=== PATIENT | female | born 1960 | race Caucasian/White ===

== ENCOUNTER 2018-12-08 17:48 | Inpatient (IN) | payer MEDICARE, OTHER ==
[~2018-12-08] VITALS: Ht 162.6 cm; Wt 72.6 kg
[~2018-12-08 17:48] MED LIST: ALBU18HF2 INH; CARI350T27 PO; HYDR-3028 PO; LEVO75TA7 PO
--- NOTE | 2018-12-08 18:22 | NUR ---
BART RILEY FROM [facility] FOR PSYCH ADMISSION. PATIENT WAS ADMITTED IN [place] FOR DRUG OVERDOSE. RR IS EVEN AND UNLABORED WITH NAD NOTED. SKIN IS WARM AND DRY. DR HENDRIX AT BS FOR EVAL.
[2018-12-08] MEDS ORDERED: LORAZEPAM 1 MG TABLET PO ONE (19:00)
[2018-12-08] MEDS ORDERED: LORAZEPAM 1 MG TABLET ONE (19:02)
--- NOTE | 2018-12-08 19:17 | NUR ---
REPORT GIVEN TO LALITHA CRUZ FOR JEFFRY.
--- NOTE | 2018-12-08 19:38 | NUR ---
CALLED FOR NURSE SUP FOR BED. [facility] [phone]
--- NOTE | 2018-12-08 19:53 | NUR ---
REPORT GIVEN TO NIKA CARTER FOR JEFFRY.
[2018-12-08] MEDS ORDERED: IBUP-1490 (20:20)
[2018-12-08] MEDS ORDERED: METH500T6 (20:20)
[2018-12-08] MEDS ORDERED: OMEP40CA37 (20:20)
[2018-12-08] MEDS ORDERED: OXYC-454 PO (20:22)
[2018-12-08] MEDS ORDERED: SUMA50TA PO (20:24)
[2018-12-08] MEDS ORDERED: ARIP2TAB3 PO (20:25)
[2018-12-08] MEDS ORDERED: MAG HYDROX/AL HYDROX/SIMETH 30 ML UDC PO PRN (21:30)
[2018-12-08] MEDS ORDERED: MAGNESIUM HYDROXIDE 30 ML UDC PO PRN (21:30)
[2018-12-08 22:00] VITALS: BP 126/70
[2018-12-08] MEDS: ACETAMINOPHEN 325 MG TABLET PO PRN (22:00)
[2018-12-08] MEDS: TEMAZEPAM 7.5 MG CAPSULE PO PRN (23:26)
[2018-12-08] MEDS ORDERED: ALBUTEROL SULFATE 8 GM HFA.AER.AD IH PRN (23:30)
[2018-12-08] MEDS ORDERED: IBUPROFEN 600 MG TABLET PO PRN (23:30)
--- NOTE | 2018-12-09 00:08 | NUR ---
ADMISSION NOTES ADMITTED THIS 58 Y/O FEMALE PATIENT FROM [facility] , PT. ADMITTED ON VOLUNTARILY STATUS C/O SEVERE DEPRESSION,SI, ANXIETY,ACUTE PSYCHOSIS,UNABLE TO CARE FOR SELF ,UPON FACE TO FACE ASSESSMENT PATIENT IS A&OX 3 COOPERTIVE, DEPRESSED , FLAT AFFECT ,EASILY AGITATED , PT.IS POOR HISTORIAN, POOR INSIGHT ,POOR JUDGEMENT ,V/S WNL, NO ACUTE DISTRESS NOTED , MD AWARE AND NOTIFIED OF THE ADMISSION, ,ENCOURAGED PT. VERBALIZED ANY FEELING CONCERN TO STAFF, ORIENT TO UNIT POLICY, WILL CONTINUE TO MONITOR FOR Q15 SAFETY AND BEHAVIOR.
[2018-12-09 08:00] VITALS: BP 121/74
[2018-12-09] MEDS ORDERED: ALBUTEROL FS 2.5 MG/3 ML VIAL.NEB NEB PRN (08:30)
[2018-12-09 08:31] LABS: CREATININE 0.6 mg/dL (0.6-1.3)
[2018-12-09 08:35] LABS: CHOLESTEROL 148 mg/dL (<200); HDL CHOLESTEROL 56 mg/dL (40-60); LDL 82 mg/dL (0-99); TRIGLYCERIDES 54 mg/dL (30-150)
[2018-12-09] MEDS: LEVOTHYROXINE SODIUM 75 MCG TABLET PO SCH (09:50)
[2018-12-09] MEDS: CARISOPRODOL 350 MG TABLET PO SCH ×3 (09:50→17:55)
[2018-12-09] MEDS: PANTOPRAZOLE 40 MG TABLET.DR PO SCH (09:51)
[2018-12-09] MEDS: oxyCODONE/APAP (5/325 MG) 1 UDTAB TABLET PO PRN (11:46)
--- NOTE | 2018-12-09 11:46 | NUR ---
RN NOTES ADMINISTERED PERCOCET 5/325 MG PO PRN FOR LOWER BACK PAIN, V/S TAKEN BP121/ 74, P-66, ENCOURAGED TO INCREASE FLUID INTAKE, CONTINUED MONITORING.
--- NOTE | 2018-12-09 12:57 | NUR ---
RN NOTES PATIENT SMOKER BUT REFUSED TO TELL HOW MUCH SHE SMOKE A DAY, WAYNE AWARE OF. NO NEW ORDER AT THIS TIME.
[2018-12-09] MEDS: LORAZEPAM 0.5 MG TABLET PO PRN (14:23)
--- NOTE | 2018-12-09 14:23 | NUR ---
RN NOTES ADMINISTERED ATIVAN 0.5 MG PO PRN AND FOR ANXIETY, AND MILK OF MAGNESIA 30 ML PO PRN FO CONSTIPATION, PER PATIENT REQUEST, CONTINUED MONITORING.
--- NOTE | 2018-12-09 15:03 | NUR ---
ALVAREZ contacted pts sister Razia [phone] to discuss discharge plan. ALVAREZ left voicemail for callback.
--- NOTE | 2018-12-09 15:03 | NUR ---
INITIAL DISCHARGE PLAN: Patient wishes to be discharged to a SNF close to [facility]. SW will refer pt to [facility]. SW will help form a safe and proper discharge in collaboration with pt and MD.
[2018-12-09 16:00] VITALS: BP 100/52
[2018-12-09 20:00] VITALS: BP 97/42
[2018-12-09] MEDS: QUETIAPINE FUMARATE 25 MG TABLET PO SCH (21:18)
--- NOTE | 2018-12-09 23:30 | NUR ---
Received pt sleeping and in bed; no s/s or complaints of pain at this time. Pt is displaying no s/s of acute/apparent distress at this time. Pt's RR is WNL: unlabored with equal rise and fall of the chest. Pt. is A&Ox3 on room air with a SpO2 of 98. Pt. is not med compliant, labile mood, and irritable. Pt denies SI/HI at this time. Pt. assisted with turning and repositioning q2hrs and PRN for comfort and circulation. Pt. has no needs at this time. Pt. educated on the use of the call crocker. Pt bed side rails up x2 for safety, bed is locked and in low position; will continue to monitor and maintain safety.
[2018-12-10] MEDS: oxyCODONE/APAP (5/325 MG) 1 UDTAB TABLET PO PRN ×2 (03:35→21:06)
[2018-12-10 08:00] VITALS: BP 113/60
[2018-12-10] MEDS: ACETAMINOPHEN 325 MG TABLET PO PRN (09:53)
[2018-12-10] MEDS: ESCITALOPRAM OXALATE (10 MG) 10 MG TABLET PO SCH (09:53)
[2018-12-10] MEDS: LEVOTHYROXINE SODIUM 75 MCG TABLET PO SCH (09:53)
[2018-12-10] MEDS: PANTOPRAZOLE 40 MG TABLET.DR PO SCH (09:54)
[2018-12-10] MEDS: CARISOPRODOL 350 MG TABLET PO SCH ×3 (09:54→17:07)
[2018-12-10 11:12] LABS: BASOPHILS % (AUTO) 0.6 % (0.0-2.0); EOSINOPHILS % (AUTO) 3.1 % (0.0-6.0); HEMATOCRIT 31 % (33-45); HEMOGLOBIN 10.7 g/dL (11.5-14.8); LYMPHOCYTES # (AUTO) 1.6 /CMM (0.8-4.8); LYMPHOCYTES % (AUTO) 46.6 % (20.0-44.0); MEAN CORPUSCULAR HGB CONC 35 g/dl (31.0-36.0); MEAN CORPUSCULAR VOLUME 95 fL (82-100); MONOCYTES # (AUTO) 0.3 /CMM (0.1-1.30); MONOCYTES % (AUTO) 8.1 % (2.0-12.0); NEUTROPHILS # (AUTO) 1.5 /CMM (1.8-8.9); NEUTROPHILS % (AUTO) 41.6 % (43.0-81.0); PLATELET COUNT (AUTO) 196 /CMM (150-450); RED BLOOD CELL COUNT(AUTO) 3.22 MIL/uL (4.0-5.2); WHITE BLOOD COUNT (AUTO) 3.5 K/uL (4.3-11.0)
[2018-12-10 16:00] VITALS: BP 134/79
--- NOTE | 2018-12-10 18:01 | NUR ---
NURSES NOTE PT TRANSFER TO MS ROOM 208A IN STABLE CONDITION DENIED ANY PAIN OR DISCOMFORT, TRANVEL WITH THE SITTER
--- NOTE | 2018-12-10 19:45 | NUR ---
GPS OVERFLOW/RN OPENING NOTES RECEIVED REPORT FROM DAYSMDFT RNSYLVIE. FOUND Pt AWAKE, RESTING IN BED. NO S/S OF ACUTE DISTRESS OR SOB NOTED. Pt IS A GPS OVERFLOW, WHO IS A/OX3, VERBAL, ABLE TO MAKE NEEDS KNOWN. ON VOLUNTARY ADMIT. SITTER AT BEDSIDE. NO IV ACCESS IN PLACE PER GPS PROTOCOL. SAFETY MEASURES IN PLACE. BED LOW, LOCKED, HOB ELEVATED, SIDE RAILS UP AND BEDSIDE TABLE WITHIN REACH. WILL CONTINUE TO MONITOR Pt's CONDITION AND SAFETY THROUGHOUT THE NIGHT.
[2018-12-10 20:00] VITALS: BP 100/68
[2018-12-10] MEDS: QUETIAPINE FUMARATE 25 MG TABLET PO SCH (21:02)
--- NOTE | 2018-12-11 06:37 | NUR ---
RN CLOSING NOTES NO SIGNIFICANT CHANGES IN Pt's CONDITION. Pt REMAINS STABLE PER BASELINE. NO S/S OF ACUTE DISTRESS OR SOB NOTED DURING THE NIGHT. ALL NEEDS MET AND ATTENDED TO. SAFETY MEASURES IN PLACE. SITTER AT BEDSIDE. WILL ENDORSE TO DAYSHIFT RN FOR Pt's JEFFRY.
--- NOTE | 2018-12-11 07:05 | NUR ---
RN NOTES PATIENT A/OX3, CALM AND COOPERATIVE, NO APPARENT DISTRESS, SITTER AT BEDSIDE, ENVIRONMENTAL HAZARDS CHECKED, NEEDS ATTENDED, WILL CONTINUE TO MONITOR.
[2018-12-11 08:00] VITALS: BP 131/76
[2018-12-11] MEDS: LEVOTHYROXINE SODIUM 75 MCG TABLET PO SCH (08:16)
[2018-12-11] MEDS: CARISOPRODOL 350 MG TABLET PO SCH ×3 (08:16→16:36)
[2018-12-11] MEDS: ESCITALOPRAM OXALATE (10 MG) 10 MG TABLET PO SCH (08:16)
[2018-12-11] MEDS: PANTOPRAZOLE 40 MG TABLET.DR PO SCH (08:16)
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
[2018-12-11 16:05] VITALS: BP 110/67
--- NOTE | 2018-12-11 16:12 | NUR ---
SW completed substance abuse intervention with pt.
--- NOTE | 2018-12-11 19:21 | NUR ---
RN NOTES PATIENT A/OX3, DENIES SI/HI, NAD, VSS, KEPT COMFORTABLE, SITTER AT BEDSIDE, WILL ENDORSE TO DRILLING PLANT OPERATOR FOR JEFFRY.
--- NOTE | 2018-12-11 19:55 | NUR ---
GPS OVERFLOW/RN OPENING NOTES RECEIVED REPORT FROM [facility] RNNOHEMI. FOUND Pt AWAKE, RESTING IN BED. NO S/S OF ACUTE DISTRESS OR SOB NOTED. Pt IS A GPS OVERFLOW, WHO IS A/OX3, VERBAL, ABLE TO MAKE NEEDS KNOWN. ON VOLUNTARY ADMIT. SITTER AT BEDSIDE. NO IV ACCESS IN PLACE PER GPS PROTOCOL. SAFETY MEASURES IN PLACE. BED LOW, LOCKED, HOB ELEVATED, SIDE RAILS UP AND BEDSIDE TABLE WITHIN REACH. WILL CONTINUE TO MONITOR Pt's CONDITION AND SAFETY THROUGHOUT THE NIGHT.
[2018-12-11 20:00] VITALS: BP 116/54
[2018-12-11 20:42] VITALS: BP 116/54
[2018-12-11] MEDS: QUETIAPINE FUMARATE 25 MG TABLET PO SCH (21:53)
--- NOTE | 2018-12-12 05:34 | NUR ---
GPS OVRFLW/SHIP PILOT NOTES Pt IS BEING TRANSFERRED BACK TO GPS. REPORT GIVEN TO [facility] LALITHA OVERTON FOR Pt's JEFFRY. SITTER AT BEDSIDE. NO S/S OF ACUTE DISTRESS OR SOB NOTED DURING THE SHIFT. RESPIRATIONS EVEN AND UNLABORED. SAFETY MEASURES IN PLACE. Pt WAS SAFELY TRANSFERRED TO [facility] ROOM 218-A VIA Pt's WHEELCHAIR. Addendum: 12/12/18 at 0539 by ROCAEL SHAH RN ALL OF Pt's BELONGINGS WERE TAKEN BACK WITH Pt TO [facility].
--- NOTE | 2018-12-12 05:40 | NUR ---
GPS TRANSFER NOTES: PATIENT WAS TRANSFERRED FROM MED SURG FLOOR 2, AN OVERFLOW PATIENT. PATIENT WAS TRANSPORTED ON A WHEELCHAIR AND ASSISTED INTO THE BED. WITH 1:1 SITTER IN CLOSE PROXIMITY. PATIENT ON VOLUNTARY STATUS. DOCUMENT SIGNED ON ADMISSION AND FILED IN THE CHART. Q15 MIN CHECKS CONTINUED. CARE PLAN CONTINUED. ENVIRONMENT CHECKED FOR SAFETY. BELONGINGS AND CONTRABAND CHECKED. SAFETY AND FALL PRECAUTIONS OBSERVED. WILL ENDORSE PATIENT TO DAY SHIFT.
[2018-12-12 08:00] VITALS: BP 122/88
[2018-12-12] MEDS: LEVOTHYROXINE SODIUM 75 MCG TABLET PO SCH (08:16)
[2018-12-12] MEDS: PANTOPRAZOLE 40 MG TABLET.DR PO SCH (08:16)
[2018-12-12] MEDS: ESCITALOPRAM OXALATE (10 MG) 10 MG TABLET PO SCH (08:17)
[2018-12-12] MEDS: CARISOPRODOL 350 MG TABLET PO SCH ×3 (08:17→16:48)
[2018-12-12 16:00] VITALS: BP 122/70
[2018-12-12] MEDS: LORAZEPAM 0.5 MG TABLET PO PRN (16:47)
[2018-12-12] MEDS: oxyCODONE/APAP (5/325 MG) 1 UDTAB TABLET PO PRN (17:00)
[2018-12-12 20:00] VITALS: BP 104/68
[2018-12-12] MEDS: QUETIAPINE FUMARATE 25 MG TABLET PO SCH (21:04)
[2018-12-13] MEDS: oxyCODONE/APAP (5/325 MG) 1 UDTAB TABLET PO PRN ×3 (00:28→16:36)
[2018-12-13 08:11] VITALS: BP 134/48
[2018-12-13] MEDS: ESCITALOPRAM OXALATE (10 MG) 10 MG TABLET PO SCH (08:45)
[2018-12-13] MEDS: CARISOPRODOL 350 MG TABLET PO SCH ×3 (08:45→16:36)
[2018-12-13] MEDS: LORAZEPAM 0.5 MG TABLET PO PRN ×2 (08:45→14:52)
[2018-12-13] MEDS: PANTOPRAZOLE 40 MG TABLET.DR PO SCH (08:46)
[2018-12-13] MEDS: LEVOTHYROXINE SODIUM 75 MCG TABLET PO SCH (08:47)
--- NOTE | 2018-12-13 08:48 | NUR ---
RN NOTE: PATIENT REPORTED OF BEING ANXIOUS. LORAZEPAM GIVEN.
--- NOTE | 2018-12-13 10:12 | NUR ---
RN NOTE: PERCOCET PRN GIVEN. PATIENT REPORTED PAIN OF 8/10 ON BACK AND KNEE.
--- NOTE | 2018-12-13 14:50 | NUR ---
rn note: PATIENT IS ANXIOUS. PRN ATIVAN GIVEN
[2018-12-13 16:23] VITALS: BP 125/71
[2018-12-13 20:56] VITALS: BP 115/73
[2018-12-13] MEDS: QUETIAPINE FUMARATE 25 MG TABLET PO SCH (21:29)
[2018-12-14] MEDS: LORAZEPAM 0.5 MG TABLET PO PRN ×3 (03:37→22:40)
--- NOTE | 2018-12-14 03:37 | NUR ---
THE PATIENT C/O OF FEELING ANXIOUS.ATIVAN 0.5 MG PO GIVEN.WILL CHECK THE EFFECTIVITY
[2018-12-14 07:12] LABS: BASOPHILS % (AUTO) 0.9 % (0.0-2.0); EOSINOPHILS % (AUTO) 3.4 % (0.0-6.0); HEMATOCRIT 32 % (33-45); LYMPHOCYTES # (AUTO) 1.5 /CMM (0.8-4.8); LYMPHOCYTES % (AUTO) 35.1 % (20.0-44.0); MEAN CORPUSCULAR HGB CONC 35 g/dl (31.0-36.0); MEAN CORPUSCULAR VOLUME 95 fL (82-100); MONOCYTES # (AUTO) 0.6 /CMM (0.1-1.30); MONOCYTES % (AUTO) 13.5 % (2.0-12.0); NEUTROPHILS % (AUTO) 47.1 % (43.0-81.0); PLATELET COUNT (AUTO) 180 /CMM (150-450); RED BLOOD CELL COUNT(AUTO) 3.35 MIL/uL (4.0-5.2); WHITE BLOOD COUNT (AUTO) 4.2 K/uL (4.3-11.0)
[2018-12-14 07:23] LABS: CREATININE 0.5 mg/dL (0.6-1.3); POTASSIUM 3.8 mmol/L (3.5-5.1)
[2018-12-14 08:00] VITALS: BP 111/69
[2018-12-14] MEDS: LEVOTHYROXINE SODIUM 75 MCG TABLET PO SCH (08:43)
[2018-12-14] MEDS: CARISOPRODOL 350 MG TABLET PO SCH ×3 (08:43→16:05)
[2018-12-14] MEDS: ESCITALOPRAM OXALATE (10 MG) 10 MG TABLET PO SCH (08:43)
[2018-12-14] MEDS: PANTOPRAZOLE 40 MG TABLET.DR PO SCH (08:44)
[2018-12-14] MEDS: oxyCODONE/APAP (5/325 MG) 1 UDTAB TABLET PO PRN ×3 (09:48→20:29)
--- NOTE | 2018-12-14 09:48 | NUR ---
RN NOTE: PATIENT REPORTS 8/10 PAIN ON LOWER BACK AND KNEE. PRN PERCOCET GIVEN.
--- NOTE | 2018-12-14 10:09 | NUR ---
SW received a phone call from pts sister Razia [phone] to provide SW with an update in regards to placement. Per sister she stated that SW can refer pt to [facility] as she was unable to locate any facilities near her.
--- NOTE | 2018-12-14 10:35 | NUR ---
ALVAREZ faxed SNF referral to Kirstin, placement coordinator at [facility] [address], [place], [place] [address] for review.
--- NOTE | 2018-12-14 10:36 | NUR ---
SW received a phone call from Kirstin, review scheduling coordinator at [facility] [address], [place] [address] stating pt was accepted to facility.
--- NOTE | 2018-12-14 13:54 | NUR ---
RN NOTE: PATIENT REPORTS OF 8/10 PAIN OF THE BACK. PRN PERCOCET GIVEN TO PATIENT.
[2018-12-14 16:00] VITALS: BP 101/49
[2018-12-14 20:00] VITALS: BP 100/50
[2018-12-14] MEDS: QUETIAPINE FUMARATE 25 MG TABLET PO SCH (21:32)
[2018-12-15 08:00] VITALS: BP 116/70
[2018-12-15] MEDS: CARISOPRODOL 350 MG TABLET PO SCH ×3 (08:27→17:00)
[2018-12-15] MEDS: PANTOPRAZOLE 40 MG TABLET.DR PO SCH (08:27)
[2018-12-15] MEDS: LEVOTHYROXINE SODIUM 75 MCG TABLET PO SCH (08:27)
[2018-12-15] MEDS: ESCITALOPRAM OXALATE (10 MG) 10 MG TABLET PO SCH (08:30)
[2018-12-15] MEDS: oxyCODONE/APAP (5/325 MG) 1 UDTAB TABLET PO PRN ×3 (10:04→20:09)
--- NOTE | 2018-12-15 10:05 | NUR ---
GPS/RN-NOTES PATIENT REQUESTING PERCOCET FOR 7/10 LOWER BACK PAIN. WILL CONT. ON 1:1 MONITORING FOR SAFETY.
[2018-12-15] MEDS: LORAZEPAM 0.5 MG TABLET PO PRN ×2 (11:20→18:31)
--- NOTE | 2018-12-15 11:21 | NUR ---
GPS/RN-NOTES PATIENT REQUESTING ATIVAN FOR ANXIETY. ATIVAN 0.5MG P.O GIVEN PRN ORDER. ON 1:1 MONITORING FOR SAFETY AND BEHAVIOR.
[2018-12-15 16:00] VITALS: BP 105/69
--- NOTE | 2018-12-15 18:32 | NUR ---
GPS/RN-NOTES PATIENT REQUESTING ATIVAN FOR ANXIETY. ATIVAN 0.5MG P.O GIVEN PRN ORDER. ON 1:1 MONITORING FOR SAFETY AND BEHAVIOR.
--- NOTE | 2018-12-15 19:27 | NUR ---
GPS/RN-NOTES PATIENT LAYING IN BED CALM,NO ACUTE DISTRESS NOTED.
[2018-12-15 20:00] VITALS: BP 108/53
[2018-12-15] MEDS: QUETIAPINE FUMARATE 25 MG TABLET PO SCH (21:29)
[2018-12-15] MEDS: TEMAZEPAM 7.5 MG CAPSULE PO PRN (22:50)
--- NOTE | 2018-12-16 07:41 | NUR ---
PATIENT IS BEHAVING WELL,SLEPT THROUGHOUT SHIFT,ABLE TO DO HER ADL'S WITH MINIMAL ASSISTANCE.1:1 SITTER DISCONTINUED .ENDORSED TO THE NEXT SHIFT TO CONTINUE TO MONITOR FOR SAFETY.
[2018-12-16 08:00] VITALS: BP 100/55
[2018-12-16] MEDS: PANTOPRAZOLE 40 MG TABLET.DR PO SCH (09:30)
[2018-12-16] MEDS: LEVOTHYROXINE SODIUM 75 MCG TABLET PO SCH (09:40)
[2018-12-16] MEDS: CARISOPRODOL 350 MG TABLET PO SCH ×3 (09:41→16:13)
[2018-12-16] MEDS: ESCITALOPRAM OXALATE (10 MG) 10 MG TABLET PO SCH (09:41)
[2018-12-16] MEDS: LORAZEPAM 0.5 MG TABLET PO PRN ×2 (09:42→16:15)
--- NOTE | 2018-12-16 12:23 | NUR ---
GROUP NOTE: Topic: "what is your goal when you're discharged from the hospital?" S: "I pass I do not want to share." O: Pt appeared with sad affect and did not maintain eye contact, pt however, participated and provided feedback to another pt. A: unable to ascertain P: pt will continue milieu treatment and medication stabilization.
[2018-12-16] MEDS: oxyCODONE/APAP (5/325 MG) 1 UDTAB TABLET PO PRN ×3 (14:22→21:14)
[2018-12-16 16:00] VITALS: BP 100/56
[2018-12-16] MEDS: TEMAZEPAM 7.5 MG CAPSULE PO PRN (20:09)
[2018-12-16 20:35] VITALS: BP 120/56
[2018-12-16] MEDS: QUETIAPINE FUMARATE 25 MG TABLET PO SCH (21:15)
[2018-12-17 08:00] VITALS: BP 117/69
[2018-12-17] MEDS: CARISOPRODOL 350 MG TABLET PO SCH ×2 (08:24→12:20)
[2018-12-17] MEDS: ESCITALOPRAM OXALATE (10 MG) 10 MG TABLET PO SCH (08:24)
[2018-12-17] MEDS: PANTOPRAZOLE 40 MG TABLET.DR PO SCH (08:24)
[2018-12-17] MEDS: LEVOTHYROXINE SODIUM 75 MCG TABLET PO SCH (08:24)
--- NOTE | 2018-12-17 08:38 | NUR ---
DR. CARVALHO GAVE AN ORDER TO D/C TO [facility], TO FOLLOW UP WITH PSYCH AND MEDICAL DOCTORS AND TO CONTINUE MEDS INCLUDING PRN.
[2018-12-17] MEDS: LORAZEPAM 0.5 MG TABLET PO PRN (09:15)
--- NOTE | 2018-12-17 09:16 | NUR ---
GPS/RN-NOTES PATIENT REQUESTING ATIVAN FOR ANXIETY. ATIVAN 0.5MG P.O GIVEN PRN ORDER. ON 1:1 MONITORING FOR SAFETY AND BEHAVIOR.
--- NOTE | 2018-12-17 10:57 | NUR ---
DR. DOVE MADE AWARE OF THE DISCHARGE AND RECONCILED MEDS.
--- NOTE | 2018-12-17 12:35 | NUR ---
DISCHARGE NOTE: Pt being discharged at 12:30pm to [facility] () [address] [place] [address] via [facility] ambulance trip #[id number] . Pts sister Razia [phone] has been notified and agreed with discharge plan. Pts mood was euthymic with congruent affect. Pt denied suicidal/homicidal ideations and denied visual/auditory hallucinations. Pt will be under the care of Asbestos Removal Supervisor: Dr. Zaheer Nix [address] [facility] [facility] [phone], [place], [place] [phone] and address her substance use and continue psychiatric treatment with Psychiatrist: Dr. Jeanette Rios [address], [place] [address] [phone]. The multidisciplinary exitcare form was done, printed, signed, and given to the patient.
--- NOTE | 2018-12-17 12:40 | NUR ---
GPS/RN-NOTES PATIENT WAS DISCHARGE TO THE [facility] TODAY. REPORT WAS GIVEN TO BIN ( MANAGER UTILITY). DR. CARVALHO AND DR. DOVE AWARE AND AGREES WITH THE DISCHARGE ORDERS. ALL DISCHARGE MEDICATIONS WAS REVIEWED WITH THE PATIENT WITH UNDERSTANDING PATIENT DID NOT VERBALIZE SI/HI,DENIES VISUAL/AUDITORY HALLUCINATIONS AT THE TIME OF DISCHARGE. LEAVE COORDINATOR BY AMBULANCE VIA GURNEY WITH TWO STAFF ASSIST.PATIENT LEFT THE UNIT IN STABLE CONDITION ALERT ORIENTED 3. PER NOTES PATIENT'S SISTER MORGAN MADE AWARE OF THE DISCHARGE. PATIENT LEFT THE UNIT WITH ALL BELONGINGS INCLUDING PAIR OF CRUTCHES X1 WHEELCHAIR AND OTHER BELONGINGS. ALL DISCHARGE PAPERS WAS SIGN BY THE PATIENT. Addendum: 12/17/18 at 1408 by GERMANIA SEBASTIAN RN IN ADDITION TO MY ABOVE NOTES.PATIENT STRONGLY REFUSED FULL BODY ASSESSMENT PRIOR TO DISCHARGE.
--- NOTE | 2019-01-01 13:34 | NUR ---
15 DAY SUBSTANCE ABUSE FOLLOW-UP: Excluded due to D/C to SNF.
== END 2018-12-17 12:40 | DRG 885 ==
LOC: ER 17:50 → GPS 19:44 → GPSOV2 12-10 18:00 → GPS 12-12 05:29
PROVIDERS: ADMIT Psychiatry & Neurology Psychiatry; ATTEND Psychiatry & Neurology Psychiatry
DX: F31.30 Bipolar disorder, current episode depressed, mild or moderate severity, unspecified (principal); E03.9 Hypothyroidism, unspecified; J44.9 Chronic obstructive pulmonary disease, unspecified; F17.210 Nicotine dependence, cigarettes, uncomplicated; G89.29 Other chronic pain; F41.9 Anxiety disorder, unspecified; Z73.6 Limitation of activities due to disability; F39 Unspecified mood [affective] disorder; F19.90 Other psychoactive substance use, unspecified, uncomplicated; F29 Unspecified psychosis not due to a substance or known physiological condition; Z89.512 Acquired absence of left leg below knee
CPT/HCPCS: 36415; 80048-TC; 80061-TC; 82565-TC; 85025-TC; 87081-TC

== ENCOUNTER 2019-01-27 15:08 | Inpatient (IN) | payer MEDICARE, OTHER ==
[~2019-01-27] VITALS: Ht 157.5 cm; Wt 68.0 kg
[~2019-01-27 15:08] MED LIST changes: +ARIP2TAB3 PO; +IBUP-1490; +METH500T6; +OMEP40CA37; +OXYC-454 PO; +SUMA50TA PO
[2019-01-27] MEDS ORDERED: ALPRAZOLAM 0.5 MG TABLET ONE (16:28)
[2019-01-27] MEDS ORDERED: ALPRAZOLAM 0.5 MG TABLET PO ONE (16:30)
[2019-01-27 16:54] LABS: BASOPHILS % (AUTO) 0.9 % (0.0-2.0); HEMATOCRIT 33 % (33-45); HEMOGLOBIN 11.2 g/dL (11.5-14.8); LYMPHOCYTES # (AUTO) 1.3 /CMM (0.8-4.8); LYMPHOCYTES % (AUTO) 35.1 % (20.0-44.0); MEAN CORPUSCULAR HGB CONC 34 g/dl (31.0-36.0); MEAN CORPUSCULAR VOLUME 97 fL (82-100); MONOCYTES # (AUTO) 0.4 /CMM (0.1-1.30); MONOCYTES % (AUTO) 11.9 % (2.0-12.0); NEUTROPHILS # (AUTO) 1.8 /CMM (1.8-8.9); NEUTROPHILS % (AUTO) 49.1 % (43.0-81.0); PLATELET COUNT (AUTO) 143 /CMM (150-450); WHITE BLOOD COUNT (AUTO) 3.7 K/uL (4.3-11.0)
[2019-01-27 16:57] LABS: APPEARANCE,URINE Slightly Cloudy (CLEAR); BILIRUBIN,URINE Negative (NEGATIVE); BLOOD, URINE Trace-intact Ery/uL (NEGATIVE); COLOR,URINE Yellow (YELLOW); KETONES,URINE Negative (NEGATIVE); LEUKOCYTE ESTERASE ,URINE Moderate (NEGATIVE); NITRITE, URINE Negative (NEGATIVE); PROTEIN,URINE Negative (NEGATIVE); UGLUCOSE Negative (NEGATIVE); UROBILINOGEN,URINE 0.2 EU/dL (0.2)
[2019-01-27 17:06] LABS: CALCIUM, SERUM 8.7 mg/dL (8.5-10.1); CARBON DIOXIDE 30 mmol/L (21-32); CHLORIDE 92 mmol/L (98-107); CREATININE 0.5 mg/dL (0.6-1.3); GLUCOSE 92 mg/dL (74-106); POTASSIUM 3.9 mmol/L (3.5-5.1); SODIUM SERUM 125 mmol/L (136-145); UREA NITROGEN, BLOOD 5 mg/dL (7-18)
[2019-01-27 17:08] LABS: ACETAMINOPHEN 0 ug/ml (10-30); ALANINE AMINOTRANSFERASE 12 U/L (12-78); ALBUMIN 3.5 g/dL (3.4-5.0); ALCOHOL, BLOOD < 3 mg/dL (0-0); ALKALINE PHOSPHATASE 84 U/L (46-116); ASPARTATE AMINOTRANSFERASE 16 U/L (15-37); BILIRUBIN,TOTAL 0.1 mg/dL (0.2-1.0); SALICYLATE 5.3 mg/dL (2.8-20.0)
[2019-01-27 17:13] LABS: BACTERIA,URINE Few /HPF (None Seen); MUCUS,URINE Few /LPF (None Seen); RBC,URINE 2-3/HPF /HPF (0-2); SQUAMOUS EPITHELIAL CELL,UR Moderate /HPF (None Seen); URINE AMORPHOUS URATE Few /HPF (None Seen)
[2019-01-27] MEDS ORDERED: IV NS 0.9% 1,000 ML BAG IV ONE (18:00)
[2019-01-27] MEDS ORDERED: IV NS 0.9% 1,000 ML IV ONE (18:00)
[2019-01-27] MEDS ORDERED: oxyCODONE HCL SR 10MG TAB.SR.12H PO SCH (18:00)
[2019-01-27] MEDS ORDERED: MAGNESIUM HYDROXIDE 30 ML UDC PO PRN (20:00)
[2019-01-27] MEDS ORDERED: ONDANSETRON HCL/PF 4 MG/2 ML VIAL IVP PRN (20:00)
[2019-01-27] MEDS ORDERED: Z GUARD REMEDY 2 OZ OINT TP PRN (20:00)
[2019-01-27] MEDS ORDERED: MAG HYDROX/AL HYDROX/SIMETH 30 ML UDC PO PRN (20:00)
[2019-01-27] MEDS ORDERED: ACETAMINOPHEN 325 MG TABLET PO PRN (20:00)
[2019-01-27 20:06] LABS: URINE SODIUM, RANDOM 9 mmol/l (40-220)
[2019-01-27 20:18] LABS: OSMOLALITY,SERUM 259 mOS/kg (278-305)
[2019-01-27 20:19] LABS: OSMOLALITY,URINE 90 mOS/kg (340-1090)
[2019-01-27] MEDS ORDERED: SUMATRIPTAN SUCCINATE 25 MG TABLET PO PRN (21:30)
[2019-01-27 21:45] VITALS: BP 107/54
[2019-01-27] MEDS: NICOTINE PATCH (14MG) 14 MG PATCH.TD24 TD SCH (22:00)
[2019-01-27] MEDS: hydrOXYzine PAMOATE 25 MG CAPSULE PO SCH (22:02)
[2019-01-27] MEDS: oxyCODONE/APAP (5/325 MG) 1 UDTAB TABLET PO SCH (22:05)
[2019-01-27] MEDS: IV NS 0.9% 1,000 ML IV PRN (22:09)
[2019-01-28] VITALS: BP 95/57
[2019-01-28] MEDS ORDERED: ALBUTEROL FS 2.5 MG/3 ML VIAL.NEB NEB PRN (01:30)
[2019-01-28] MEDS ORDERED: [UNRECOGNIZED DRUG - CODE] PO (03:19)
[2019-01-28] MEDS ORDERED: ESCI20TA PO (03:19)
[2019-01-28] MEDS ORDERED: OXYC-454 PO (03:19)
[2019-01-28] MEDS ORDERED: MAG30ORA PO (03:19)
[2019-01-28] MEDS ORDERED: MAGN400O6 PO (03:19)
[2019-01-28 06:35] LABS: BASOPHILS % (AUTO) 0.6 % (0.0-2.0); EOSINOPHILS % (AUTO) 3.9 % (0.0-6.0); HEMATOCRIT 31 % (33-45); HEMOGLOBIN 10.9 g/dL (11.5-14.8); LYMPHOCYTES # (AUTO) 1.5 /CMM (0.8-4.8); LYMPHOCYTES % (AUTO) 50.8 % (20.0-44.0); MEAN CORPUSCULAR HGB CONC 35 g/dl (31.0-36.0); MEAN CORPUSCULAR VOLUME 95 fL (82-100); MONOCYTES # (AUTO) 0.3 /CMM (0.1-1.30); MONOCYTES % (AUTO) 10.9 % (2.0-12.0); NEUTROPHILS % (AUTO) 33.8 % (43.0-81.0); PLATELET COUNT (AUTO) 138 /CMM (150-450); RED BLOOD CELL COUNT(AUTO) 3.26 MIL/uL (4.0-5.2)
[2019-01-28] MEDS: IV NS 0.9% 1,000 ML IV PRN (06:36)
[2019-01-28 06:46] LABS: CALCIUM, SERUM 8.6 mg/dL (8.5-10.1); CREATININE 0.4 mg/dL (0.6-1.3); MAGNESIUM 2.1 mg/dL (1.8-2.4); PHOSPHORUS 4.3 mg/dL (2.5-4.9); POTASSIUM 3.7 mmol/L (3.5-5.1)
[2019-01-28] MEDS ORDERED: PANTOPRAZOLE 40 MG TABLET.DR PO SCH (07:30)
[2019-01-28] MEDS ORDERED: LEVOTHYROXINE SODIUM 75 MCG TABLET PO SCH (07:30)
[2019-01-28 08:00] VITALS: BP 105/57
[2019-01-28] MEDS: hydrOXYzine PAMOATE 25 MG CAPSULE PO SCH ×3 (08:33→16:24)
[2019-01-28] MEDS: NICOTINE PATCH (14MG) 14 MG PATCH.TD24 TD SCH (08:33)
[2019-01-28] MEDS: oxyCODONE/APAP (5/325 MG) 1 UDTAB TABLET PO SCH (08:34)
[2019-01-28] MEDS ORDERED: CARISOPRODOL 350 MG TABLET PO SCH (09:00)
[2019-01-28] MEDS ORDERED: ARIPIPRAZOLE 2 MG TABLET PO SCH (09:00)
[2019-01-28] MEDS ORDERED: METHOCARBAMOL (500MG) 500 MG TABLET PO SCH (09:00)
[2019-01-28 16:00] VITALS: BP 111/67
[2019-01-28] MEDS ORDERED: IV NS 0.9% 1,000 ML IV ONE (18:00)
[2019-01-28 20:04] VITALS: BP 120/65
== END 2019-01-28 20:12 | DRG 641 ==
LOC: ER 15:16 → TELE 20:50 → MED 23:47
PROVIDERS: ADMIT Family Medicine; ATTEND Family Medicine
DX: E87.1 Hypo-osmolality and hyponatremia (principal); R45.851 Suicidal ideations; N39.0 Urinary tract infection, site not specified; D61.818 Other pancytopenia; E86.1 Hypovolemia; G43.909 Migraine, unspecified, not intractable, without status migrainosus; E03.9 Hypothyroidism, unspecified; Z89.612 Acquired absence of left leg above knee; Z79.891 Long term (current) use of opiate analgesic; K21.9 Gastro-esophageal reflux disease without esophagitis; J44.9 Chronic obstructive pulmonary disease, unspecified; G89.29 Other chronic pain; F41.9 Anxiety disorder, unspecified; F12.90 Cannabis use, unspecified, uncomplicated; F17.210 Nicotine dependence, cigarettes, uncomplicated; Z88.8 Allergy status to other drugs, medicaments and biological substances; Z79.01 Long term (current) use of anticoagulants; Z79.51 Long term (current) use of inhaled steroids; Z79.899 Other long term (current) drug therapy; D63.8 Anemia in other chronic diseases classified elsewhere; R63.1 Polydipsia; F25.1 Schizoaffective disorder, depressive type
CPT/HCPCS: 36415; 80048-TC; 80061-TC; 80076-TC; 80305; 81000-TC; 83735-TC; 83935-TC; 84100-TC; 84300-TC; 85025-TC; 87081-TC; 87086-TC; G0378; G0480; J7030; Q0177

== ENCOUNTER 2019-01-28 20:23 | Inpatient (IN) | payer MEDICARE, OTHER ==
[~2019-01-28] VITALS: Ht 157.5 cm; Wt 68.0 kg
[~2019-01-28 20:23] MED LIST changes: +ESCI20TA PO; +MAG30ORA PO; +MAGN400O6 PO; +[UNRECOGNIZED DRUG - CODE] PO
[2019-01-28 20:45] VITALS: BP 120/65
--- NOTE | 2019-01-28 20:45 | NUR ---
MS/GPS OVERFLOW Patient is seen by Crisis team and being admitted to GPS/MHU under the care of Dr. Kapadia. Patient appears depressed, quite and calm. Skin body assessment done, skin intact. Patient is admitted as Voluntary status with diagnosis of Psychosis. Sitter in place. Maintained safety. Will cont to monitor.
[2019-01-28] MEDS ORDERED: MAGNESIUM HYDROXIDE 30 ML UDC PO PRN (22:30)
[2019-01-28] MEDS: ACETAMINOPHEN 325 MG TABLET PO PRN (23:02)
[2019-01-29] MEDS ORDERED: METHOCARBAMOL (500MG) 500 MG TABLET PO PRN
[2019-01-29] MEDS ORDERED: MAG HYDROX/AL HYDROX/SIMETH 30 ML UDC PO PRN
[2019-01-29] MEDS ORDERED: MAGNESIUM HYDROXIDE 30 ML UDC PO PRN
[2019-01-29] MEDS: TEMAZEPAM 7.5 MG CAPSULE PO PRN (01:16)
[2019-01-29] MEDS ORDERED: ALBUTEROL FS 2.5 MG/3 ML VIAL.NEB NEB PRN (01:30)
--- NOTE | 2019-01-29 06:18 | NUR ---
MS RN/GPS OVERFLOW Patient in bed, stable oxygen saturation on RA. Lower back pain controlled with PO Tylenol. No SI, calm behavior, slept well with PRN Restoril. Continued on GPS/MHU care as planned. Maintained safety, Sitter at the bedside.
[2019-01-29 06:47] LABS: CHOLESTEROL 158 mg/dL (<200); HDL CHOLESTEROL 49 mg/dL (40-60); LDL 94 mg/dL (0-99); TRIGLYCERIDES 72 mg/dL (30-150)
[2019-01-29 06:58] LABS: ALBUMIN 3.2 g/dL (3.4-5.0); BILIRUBIN,TOTAL 0.2 mg/dL (0.2-1.0); CALCIUM, SERUM 9.1 mg/dL (8.5-10.1); CREATININE 0.4 mg/dL (0.6-1.3); POTASSIUM 3.2 mmol/L (3.5-5.1); TOTAL PROTEIN, SERUM 6.6 g/dL (6.4-8.2)
--- NOTE | 2019-01-29 07:15 | NUR ---
MS/RN OPENING NOTES RECEIVED PATIENT IN BED. A/O X 4 AND VERBALLY RESPONSIVE. PATIENT DENIES SI AND HI AT THIS TIME. RESPIRATIONS EVEN AND UNLABORED. DENIES SHORTNESS OF BREATH. PATIENT HAS SITTER AT THE BEDSIDE. BED LOW, LOCKED. SIDE RAILS X2. CALL LIGHT WITHIN REACH. WILL CONTINUE TO MONITOR.
[2019-01-29] MEDS: LEVOTHYROXINE SODIUM 75 MCG TABLET PO SCH (09:10)
[2019-01-29] MEDS: PANTOPRAZOLE 40 MG TABLET.DR PO SCH (09:10)
[2019-01-29] MEDS: CARISOPRODOL 350 MG TABLET PO SCH (09:10)
[2019-01-29] MEDS: oxyCODONE/APAP (5/325 MG) 1 UDTAB TABLET PO SCH ×2 (09:12→21:00)
[2019-01-29] MEDS ORDERED: POTASSIUM CHLORIDE 20 MEQ TAB.PRT.SR PO ONE (10:00)
--- NOTE | 2019-01-29 10:22 | NUR ---
SW contacted Kirstin, nursing home admissions director at [facility] [address], [place] [address] who confirmed pt is able to return once stable for discharge.
--- NOTE | 2019-01-29 12:36 | NUR ---
INITIAL DISCHARGE PLAN: Patient wishes to return to [facility] [address], [place] [address] . ALVAREZ spoke with Kirstin, admissions rn who confirmed pts readmission once stable for discharge. ALVAREZ will help form a safe and proper discharge in collaboration with .
[2019-01-29] MEDS: MAG HYDROX/AL HYDROX/SIMETH 30 ML UDC PO PRN (13:20)
[2019-01-29] MEDS: oxyCODONE/APAP (5/325 MG) 1 UDTAB TABLET PO PRN (13:27)
[2019-01-29] MEDS: LORAZEPAM 0.5 MG TABLET PO PRN (13:42)
--- NOTE | 2019-01-29 15:34 | NUR ---
SW contacted Kirstin, donor relations coordinator at [facility] [address], [place] [address] to inquire more about pts admission to [facility]. Kirstin mentioned that pt was given a blood pass and after she returned she began acting bizarre and hallucinating and stating she wanted to harm herself. Kirstin stated that pt might have been under the influence of drugs she stated that facility had requested toxicology and were waiting for results.
--- NOTE | 2019-01-29 18:34 | NUR ---
MS/RN NOTE THE PATIENT ALERT AND ORIENTED X4. IN ROOM AIR AND DENIES SOB. RESPIRATION REGULAR AND UNLABORED. DENIES PAIN. THE PATIENT IN NO APPARENT DISTRESS. THE PATIENT CONTINUES TO DENIES SI AND HI. SITTER AT THE BEDSIDE. GOOD AND GENTLE SKIN CARE RENDERED. ALL NEEDS ATTENDED AND ANTICIPATED. BED LOW AND LOCKED. SIDE RAILS UP X2. CALL LIGHT WITHIN REACH. WILL ENDORSE TO LEDGE MAN.
--- NOTE | 2019-01-29 19:46 | NUR ---
RN/GPS OVERFLOW OPENING NOTES PT RECEIVED WITH EYES CLOSED, OPENS SPONTANEOUSLY TO NAME. SITTER AT BEDSIDE. A/OX4. ON ROOM AIR, BREATHING EVEN AND UNLABORED. DENIES SOB, PAIN AND SI/HI AT THIS TIME. CALM AND COOPERATIVE. BED IN LOW/LOCKED POSITION WITH CALL LIGHT IN REACH, BILATERAL UPPER SIDE RAILS IN PLACE. WILL CONTINUE TO MONITOR
[2019-01-29 20:00] VITALS: BP 136/87
[2019-01-29] MEDS: OLANZAPINE 2.5 MG TABLET PO SCH (20:00)
--- NOTE | 2019-01-29 21:45 | NUR ---
RN NOTES PT TRANSFERRED TO GPS IN STABLE CONDITION. ALL BELONGINGS AND CHART SENT DOWN WITH PT
--- NOTE | 2019-01-29 21:50 | NUR ---
GPS RN NOTE, RECEIVED PATIENT AWAKE AND IN BED NO S/S OR COMPLAINTS OF PAIN AT THIS TIME. PATIENT IS DISPLAYING NO S/S OF APPARENT DISTRESS AT THIS TIME. PATIENT BREATHING IS UNLABORED WITH EQUAL RISE AND FALL OF THE CHEST. PATIENT IS ALERT AND ORIENTED X 1 ON ROOM AIR WITH A SPO2 0F 97%. PATIENT IS MED COMPLIANT, DISORGANIZED, DEPRESSED, COOPERATIVE, AND NEEDS REORIENTATION. PATIENT DENIES SUICIDE AND HOMICIDAL IDEATIONS AT THIS TIME. PATIENT ASSISTED WITH TURNING AND REPOSITIONING Q2HR AND PRN FOR COMFORT AND CIRCULATION. PATIENT HAS NO NEEDS AT THIS TIME. PATIENT EDUCATED ON THE USE OF THE CALL RAYA. PATIENT BED SIDE RAILS ARE UP X 2 FOR SAFETY, BED IS LOCKED AND LOW. WILL CONTINUE TO MONITOR AND MAINTAIN SAFETY Q15 MIN WITH THE HELP OF STAFF.
--- NOTE | 2019-01-29 22:10 | NUR ---
RN NOTES PM MEDICATIONS HELD DUE TO LOW HR RANGING FROM 49-55 BPM
--- NOTE | 2019-01-30 07:30 | NUR ---
on am rounds pt. states she has diarrhea,nausea she thinks from medication withdrawal.
[2019-01-30 08:00] VITALS: BP 127/72
[2019-01-30] MEDS: ESCITALOPRAM OXALATE (10 MG) 10 MG TABLET PO SCH (08:55)
[2019-01-30] MEDS: CARISOPRODOL 350 MG TABLET PO SCH (08:55)
[2019-01-30] MEDS: LEVOTHYROXINE SODIUM 75 MCG TABLET PO SCH (08:55)
[2019-01-30] MEDS: PANTOPRAZOLE 40 MG TABLET.DR PO SCH (08:55)
[2019-01-30] MEDS: MAG HYDROX/AL HYDROX/SIMETH 30 ML UDC PO PRN (08:55)
--- NOTE | 2019-01-30 08:55 | NUR ---
given maalox for nausea.
[2019-01-30] MEDS: oxyCODONE/APAP (5/325 MG) 1 UDTAB TABLET PO SCH ×2 (09:00→20:12)
--- NOTE | 2019-01-30 09:12 | NUR ---
percocette witheld due to low pulse,just 52.
[2019-01-30] MEDS: ACETAMINOPHEN 325 MG TABLET PO PRN (09:42)
--- NOTE | 2019-01-30 09:42 | NUR ---
given tylenol 650 mg for headache.
[2019-01-30] MEDS: oxyCODONE/APAP (5/325 MG) 1 UDTAB TABLET PO PRN (14:44)
--- NOTE | 2019-01-30 14:56 | NUR ---
medicated at this time with percocet for headache.
[2019-01-30 16:00] VITALS: BP 144/81
--- NOTE | 2019-01-30 18:30 | NUR ---
justin school social worker in and discussed pt. status regards to weakness,weak pulse,nausea.he reviewed pt,s med list and states he will revise.
[2019-01-30 20:00] VITALS: BP 139/76
[2019-01-30] MEDS: OLANZAPINE 2.5 MG TABLET PO SCH (20:10)
[2019-01-31] MEDS: oxyCODONE/APAP (5/325 MG) 1 UDTAB TABLET PO PRN ×2 (02:08→12:36)
[2019-01-31] MEDS: IBUPROFEN 600 MG TABLET PO PRN ×2 (03:51→11:03)
--- NOTE | 2019-01-31 06:18 | NUR ---
GPS-RN NOTES: PERCOCET WITHHELD DUE TO LOW PULSE RANGING FROM 49-55BPM.
[2019-01-31 08:00] VITALS: BP 147/73
[2019-01-31] MEDS: ESCITALOPRAM OXALATE (10 MG) 10 MG TABLET PO SCH (08:23)
[2019-01-31] MEDS: CARISOPRODOL 350 MG TABLET PO SCH (08:23)
[2019-01-31] MEDS: PANTOPRAZOLE 40 MG TABLET.DR PO SCH (08:23)
[2019-01-31] MEDS: LEVOTHYROXINE SODIUM 75 MCG TABLET PO SCH (08:23)
[2019-01-31] MEDS: oxyCODONE/APAP (5/325 MG) 1 UDTAB TABLET PO SCH ×2 (08:28→20:08)
[2019-01-31] MEDS: LORAZEPAM 0.5 MG TABLET PO PRN ×3 (09:42→22:08)
[2019-01-31] MEDS ORDERED: ONDANSETRON 4 MG TAB.RAPDIS SL PRN (14:30)
[2019-01-31 16:00] VITALS: BP 134/59
[2019-01-31] MEDS: OLANZAPINE 2.5 MG TABLET PO SCH (19:43)
[2019-01-31 20:00] VITALS: BP 124/69
[2019-01-31] MEDS: TEMAZEPAM 7.5 MG CAPSULE PO PRN (22:00)
[2019-02-01] MEDS: oxyCODONE/APAP (5/325 MG) 1 UDTAB TABLET PO PRN ×2 (01:00→14:21)
[2019-02-01 08:00] VITALS: BP 128/62
[2019-02-01] MEDS: PANTOPRAZOLE 40 MG TABLET.DR PO SCH (09:48)
[2019-02-01] MEDS: ESCITALOPRAM OXALATE (10 MG) 10 MG TABLET PO SCH (09:49)
[2019-02-01] MEDS: CARISOPRODOL 350 MG TABLET PO SCH (09:49)
[2019-02-01] MEDS: LEVOTHYROXINE SODIUM 75 MCG TABLET PO SCH (09:49)
[2019-02-01] MEDS: oxyCODONE/APAP (5/325 MG) 1 UDTAB TABLET PO SCH ×2 (09:53→20:04)
[2019-02-01] MEDS: IBUPROFEN 600 MG TABLET PO PRN (14:21)
[2019-02-01 16:00] VITALS: BP 121/59
[2019-02-01] MEDS: OLANZAPINE 2.5 MG TABLET PO SCH (20:03)
[2019-02-01 20:15] VITALS: BP 104/68
[2019-02-02] MEDS: LEVOTHYROXINE SODIUM 75 MCG TABLET PO SCH (07:30)
[2019-02-02] MEDS: PANTOPRAZOLE 40 MG TABLET.DR PO SCH (07:30)
[2019-02-02 08:00] VITALS: BP 135/68
[2019-02-02] MEDS: ESCITALOPRAM OXALATE (10 MG) 10 MG TABLET PO SCH (09:24)
[2019-02-02] MEDS: oxyCODONE/APAP (5/325 MG) 1 UDTAB TABLET PO SCH ×2 (09:28→21:19)
[2019-02-02] MEDS: CARISOPRODOL 350 MG TABLET PO SCH (09:46)
[2019-02-02] MEDS: OLANZAPINE 2.5 MG TABLET PO SCH ×2 (13:19→20:26)
[2019-02-02 16:00] VITALS: BP 135/77
[2019-02-02 20:30] VITALS: BP 109/56
[2019-02-02 22:00] VITALS: BP 105/64
[2019-02-02] MEDS: LORAZEPAM 0.5 MG TABLET PO PRN (23:58)
[2019-02-03 08:00] VITALS: BP 132/56
[2019-02-03] MEDS: LEVOTHYROXINE SODIUM 75 MCG TABLET PO SCH (08:25)
[2019-02-03] MEDS: PANTOPRAZOLE 40 MG TABLET.DR PO SCH (08:25)
[2019-02-03] MEDS: oxyCODONE/APAP (5/325 MG) 1 UDTAB TABLET PO SCH (09:04)
[2019-02-03] MEDS: OLANZAPINE 2.5 MG TABLET PO SCH (09:04)
[2019-02-03] MEDS: CARISOPRODOL 350 MG TABLET PO SCH (09:04)
[2019-02-03] MEDS: LORAZEPAM 0.5 MG TABLET PO PRN ×2 (10:51→21:11)
[2019-02-03] MEDS: SUMATRIPTAN SUCCINATE 25 MG TABLET PO PRN (12:08)
[2019-02-03] MEDS: OXCARBAZEPINE 150 MG TABLET PO SCH ×2 (13:05→19:34)
[2019-02-03] MEDS: ARIPIPRAZOLE 5 MG TABLET PO SCH ×2 (13:05→17:49)
[2019-02-03] MEDS: oxyCODONE/APAP (5/325 MG) 1 UDTAB TABLET PO PRN (13:38)
[2019-02-03 16:00] VITALS: BP 115/72
[2019-02-03] MEDS: IBUPROFEN 600 MG TABLET PO PRN (17:50)
[2019-02-03 20:44] VITALS: BP 99/71
[2019-02-03 22:30] VITALS: BP 102/63
[2019-02-04 08:00] VITALS: BP 152/59
[2019-02-04] MEDS: CARISOPRODOL 350 MG TABLET PO SCH (08:34)
[2019-02-04] MEDS: PANTOPRAZOLE 40 MG TABLET.DR PO SCH (08:34)
[2019-02-04] MEDS: ARIPIPRAZOLE 5 MG TABLET PO SCH ×3 (08:34→16:41)
[2019-02-04] MEDS: LEVOTHYROXINE SODIUM 75 MCG TABLET PO SCH (08:34)
[2019-02-04] MEDS: OXCARBAZEPINE 150 MG TABLET PO SCH ×2 (08:34→16:41)
[2019-02-04] MEDS: LORAZEPAM 0.5 MG TABLET PO PRN (09:48)
[2019-02-04] MEDS: SUMATRIPTAN SUCCINATE 25 MG TABLET PO PRN (13:26)
[2019-02-04 16:00] VITALS: BP 147/82
[2019-02-04] MEDS: oxyCODONE/APAP (5/325 MG) 1 UDTAB TABLET PO PRN ×2 (16:41→21:10)
[2019-02-04 20:00] VITALS: BP 146/83
[2019-02-04] MEDS: TEMAZEPAM 7.5 MG CAPSULE PO PRN ×2 (21:10)
[2019-02-05 07:23] LABS: CREATININE 0.4 mg/dL (0.6-1.3); PHOSPHORUS 4.5 mg/dL (2.5-4.9); POTASSIUM 3.3 mmol/L (3.5-5.1)
[2019-02-05 07:28] LABS: BASOPHILS % (AUTO) 0.9 % (0.0-2.0); EOSINOPHILS % (AUTO) 3.2 % (0.0-6.0); HEMATOCRIT 34 % (33-45); HEMOGLOBIN 12.1 g/dL (11.5-14.8); LYMPHOCYTES # (AUTO) 1.8 /CMM (0.8-4.8); LYMPHOCYTES % (AUTO) 40.5 % (20.0-44.0); MEAN CORPUSCULAR HGB CONC 35 g/dl (31.0-36.0); MEAN CORPUSCULAR VOLUME 93 fL (82-100); MONOCYTES # (AUTO) 0.4 /CMM (0.1-1.30); MONOCYTES % (AUTO) 9.9 % (2.0-12.0); NEUTROPHILS % (AUTO) 45.5 % (43.0-81.0); PLATELET COUNT (AUTO) 206 /CMM (150-450); RED BLOOD CELL COUNT(AUTO) 3.68 MIL/uL (4.0-5.2); WHITE BLOOD COUNT (AUTO) 4.5 K/uL (4.3-11.0)
[2019-02-05 08:00] VITALS: BP 121/60
[2019-02-05] MEDS: CARISOPRODOL 350 MG TABLET PO SCH (08:40)
[2019-02-05] MEDS: OXCARBAZEPINE 150 MG TABLET PO SCH (08:41)
[2019-02-05] MEDS: LEVOTHYROXINE SODIUM 75 MCG TABLET PO SCH (08:41)
[2019-02-05] MEDS: PANTOPRAZOLE 40 MG TABLET.DR PO SCH (08:41)
[2019-02-05] MEDS: ARIPIPRAZOLE 5 MG TABLET PO SCH (08:41)
--- NOTE | 2019-02-05 08:47 | NUR ---
DR. JACOME GAVE AN ORDER TO D/C HOLD AND D/C TO [facility], TO CONTINUE TO SAME MEDS INCLUDING PRN AND TO FOLLOW UP WITH PSYCH AND MEDICAL DOCTORS.
--- NOTE | 2019-02-05 09:03 | NUR ---
DR. BLACK MADE AWARE OF THE DISCHARGE AND RECONCILED THE MEDS.
[2019-02-05] MEDS ORDERED: POTASSIUM CHLORIDE 20 MEQ TAB.PRT.SR PO SCH (09:30)
[2019-02-05] MEDS: LORAZEPAM 0.5 MG TABLET PO PRN (09:32)
--- NOTE | 2019-02-05 09:41 | NUR ---
GPS/RN-NOTES PATIENT REQUESTING ATIVAN, STATED" I'M ANXIOUS , CAN YOU GIVE ME MY ATIVAN BEFORE MY DISCHARGE TODAY".ATIVAN 0.5MG P.O GIVEN PRN ORDER. WILL CONT. MONITORING FOR SAFETY AND BEHAVIOR.
--- NOTE | 2019-02-05 12:17 | NUR ---
DISCHARGE NOTE: Pt will be discharged at 12:30pm to [facility] [address] [place] [address] via [facility] ambulance trip #[id number]. Pts sister Razia [phone] has been notified. Pts mood is euthymic with congruent affect. Pt denied visual/auditory hallucinations and denied suicidal/homicidal ideations. For smoking cessation, patient was referred to the [employer] and [employer] [id number]. Pt will also participate in a telephone meeting with [employer] [phone] on Wednesday February 06, 2019 at 8:00am. Pt will be under the care of Substation Designer: Dr. Zaheer Nix [address] [place] [address] [phone], [place], [place] [id number] [phone] and will address substance use with Psychiatrist: Dr. Jeanette Rios [address], [place], [place] [phone]. The multidisciplinary exitcare form was done, printed, signed, and given to the patient.
--- NOTE | 2019-02-05 12:36 | NUR ---
GPS/RN-NOTES PATIENT DISCHARGE TO [facility] TODAY. DR. JACOME AND DR. BLACK AWARE WITH ORDERS ORDERS.REPORT WAS GIVEN TO TRISTIN ( FACILITY INVESTMENT ANALYST). PATIENT DID NOT VERBALIZE SI/HI ,DENIES VISUAL/AUDITORY HALLUCINATIONS AT THE TIME OF DISCHARGE. PATIENT LEFT THE UNIT IN STABLE CONDITION ALERT ORIENTED X3. PICKUP BY AMBULANCE VIA GURNEY WITH TWO STAFF ASSIST. PATIENT LEFT WITH ALL BELONGINGS INCLUDING OWN WHEELCHAIR. OH. SW NOTES PATIENT SISTER MORGAN AWARE OF THE DISCHARGE.
--- NOTE | 2019-02-19 12:52 | NUR ---
15 DAY SUBSTANCE ABUSE FOLLOW UP: Pt excluded due to discharge to SNF.
== END 2019-02-05 12:35 | DRG 885 ==
LOC: GPSOV 20:23 → GPS 01-29 22:43
PROVIDERS: ADMIT Psychiatry & Neurology Psychosomatic Medicine; ATTEND Psychiatry & Neurology Psychosomatic Medicine
DX: F31.9 Bipolar disorder, unspecified (principal); E87.1 Hypo-osmolality and hyponatremia; R45.851 Suicidal ideations; F29 Unspecified psychosis not due to a substance or known physiological condition; D63.8 Anemia in other chronic diseases classified elsewhere; J44.9 Chronic obstructive pulmonary disease, unspecified; K21.9 Gastro-esophageal reflux disease without esophagitis; E03.9 Hypothyroidism, unspecified; Z98.890 Other specified postprocedural states; G89.4 Chronic pain syndrome; F17.200 Nicotine dependence, unspecified, uncomplicated; E87.6 Hypokalemia; F19.10 Other psychoactive substance abuse, uncomplicated; G31.84 Mild cognitive impairment of uncertain or unknown etiology; R63.1 Polydipsia
CPT/HCPCS: 36415; 80048-TC; 80053-TC; 80061-TC; 83735-TC; 84100-TC; 85025-TC; 87081-TC

== ENCOUNTER 2023-11-12 18:09 | Inpatient (IN) | payer MEDICARE, OTHER ==
[~2023-11-12] VITALS: Ht 162.6 cm; Wt 72.6 kg
[~2023-11-12 18:09] MED LIST changes: +AMOX500C2 PO; -HYDR-3028 PO; +HYDR50TA61 PO; +OMEP40CA21; -OMEP40CA37; -OXYC-454 PO; +OXYC1TAB12 PO
[2023-11-12 22:46] LABS: EOSINOPHILS # (AUTO) 0.1 K/uL (0.0-0.7); EOSINOPHILS % (AUTO) 2.8 % (0.0-6.0); HEMATOCRIT 37 % (33-45); HEMOGLOBIN 12.4 g/dL (11.5-14.8); LYMPHOCYTES # (AUTO) 1.2 K/uL (0.8-4.8); LYMPHOCYTES % (AUTO) 26.7 % (20.0-44.0); MEAN CORPUSCULAR HEMOGLOBIN 32 PG (26.0-33.0); MEAN CORPUSCULAR HGB CONC 34 g/dl (31.0-36.0); MEAN CORPUSCULAR VOLUME 97 fL (82-100); MONOCYTES # (AUTO) 0.3 K/uL (0.1-1.30); MONOCYTES % (AUTO) 7.6 % (2.0-12.0); NEUTROPHILS # (AUTO) 2.7 K/uL (1.8-8.9); NEUTROPHILS % (AUTO) 61.9 % (43.0-81.0); PLATELET COUNT (AUTO) 218 K/uL (150-450); RED BLOOD CELL COUNT(AUTO) 3.84 MIL/uL (4.0-5.2); RED CELL DISTRIBUTION WIDTH 13.1 % (11.5-15.0); WHITE BLOOD COUNT (AUTO) 4.4 K/uL (4.3-11.0)
[2023-11-12 22:56] LABS: CALCIUM, SERUM 9.5 mg/dL (8.5-10.1); CARBON DIOXIDE 30 mmol/L (21-32); CHLORIDE 101 mmol/L (98-107); CREATININE 0.6 mg/dL (0.6-1.3); GLUCOSE 110 mg/dL (74-106); POTASSIUM 3.6 mmol/L (3.5-5.1); SODIUM SERUM 135 mmol/L (136-145); UREA NITROGEN, BLOOD 10 mg/dL (7-18)
[2023-11-12 23:02] LABS: ACETAMINOPHEN <10 ug/ml (10-30); ALANINE AMINOTRANSFERASE 16 U/L (12-78); ALBUMIN 3.6 g/dL (3.4-5.0); ALCOHOL, BLOOD < 3 mg/dL (0-10); ALKALINE PHOSPHATASE 115 U/L (46-116); ASPARTATE AMINOTRANSFERASE 13 U/L (15-37); BILIRUBIN,DIRECT 0.1 mg/dL (0.0-0.2); BILIRUBIN,TOTAL 0.1 mg/dL (0.2-1.0); SALICYLATE 3.2 mg/dL (2.8-20.0); TOTAL PROTEIN, SERUM 7.4 g/dL (6.4-8.2)
[2023-11-12 23:51] LABS: APPEARANCE,URINE CLEAR (CLEAR); BILIRUBIN,URINE NEGATIVE (NEGATIVE); BLOOD, URINE NEGATIVE Ery/uL (NEGATIVE); COLOR,URINE YELLOW (YELLOW); KETONES,URINE NEGATIVE (NEGATIVE); LEUKOCYTE ESTERASE ,URINE NEGATIVE (NEGATIVE); NITRITE, URINE NEGATIVE (NEGATIVE); PROTEIN,URINE NEGATIVE (NEGATIVE); UGLUCOSE NEGATIVE (NEGATIVE); UROBILINOGEN,URINE 0.2 EU/dL (0.2)
[2023-11-13 00:06] LABS: AMPHETAMINE, URINE NEGATIVE (NEGATIVE); BARBITURATE, URINE NEGATIVE (NEGATIVE); BENZODIAZEPINE, URINE NEGATIVE (NEGATIVE); COCCAINE, URINE NEGATIVE (NEGATIVE); OPIATE, URINE NEGATIVE (NEGATIVE); PHENCYCLIDINE SCREEN,URINE NEGATIVE (NEGATIVE)
[2023-11-13 00:08] LABS: CANNABINOID, URINE POSITIVE (NEGATIVE)
[2023-11-13] MEDS ORDERED: ACETAMINOPHEN ES 500 MG TABLET PO ONE (00:30)
[2023-11-13] MEDS ORDERED: LORAZEPAM 1 MG TABLET ONE (03:21)
[2023-11-13] MEDS ORDERED: LORAZEPAM 1 MG TABLET PO ONE (03:30)
[2023-11-13] MEDS ORDERED: ZOLPIDEM TARTRATE 5 MG TABLET PO PRN (05:30)
[2023-11-13] MEDS ORDERED: MAGNESIUM HYDROXIDE 30 ML UDC PO PRN (05:30)
[2023-11-13] MEDS ORDERED: MAG HYDROX/AL HYDROX/SIMETH 30 ML UDC PO PRN (05:30)
[2023-11-13] MEDS ORDERED: BLOOD SUGAR DIAGNOSTIC 1 EACH STRIP IN ONE (05:30)
[2023-11-13 06:41] VITALS: BP 132/85; TEMP 98.1; O2SAT 96
[2023-11-13 08:00] VITALS: BP 119/69; TEMP 98.2; O2SAT 95
[2023-11-13] MEDS ORDERED: SUMA100T16 PO (08:02)
[2023-11-13] MEDS ORDERED: TIZA4TAB5 PO (08:02)
[2023-11-13] MEDS ORDERED: PHEN-895 PO (08:02)
[2023-11-13] MEDS ORDERED: GUAI120L56 PO (08:02)
[2023-11-13] MEDS ORDERED: ONDA-97 PO (08:02)
[2023-11-13] MEDS ORDERED: FLUT1DIS IH (08:02)
[2023-11-13] MEDS ORDERED: BUPR-54 PO (08:02)
[2023-11-13] MEDS ORDERED: LEVO50TA PO (08:02)
[2023-11-13] MEDS ORDERED: KETO10TA2 PO (08:02)
[2023-11-13] MEDS ORDERED: IBUP-1957 PO (08:02)
[2023-11-13] MEDS ORDERED: CARI350T27 PO (08:02)
[2023-11-13] MEDS ORDERED: ESCI10TA PO (08:02)
[2023-11-13] MEDS ORDERED: risperiDONE 1 MG TABLET PO SCH (12:30)
[2023-11-13] MEDS: NICOTINE PATCH (14MG) 14 MG PATCH.TD24 TD SCH (13:04)
[2023-11-13] MEDS: LORAZEPAM 0.5 MG TABLET PO PRN ×2 (15:25→22:46)
[2023-11-13 16:00] VITALS: BP 129/60; TEMP 97.9; O2SAT 96
[2023-11-13] MEDS: risperiDONE 0.25 MG TABLET PO SCH (17:05)
[2023-11-13] MEDS: ACETAMINOPHEN 325 MG TABLET PO PRN (20:22)
[2023-11-13] MEDS ORDERED: ACET-907 PO (20:34)
[2023-11-13] MEDS ORDERED: CARISOPRODOL 350 MG TABLET PO SCH ×2 (23:00)
[2023-11-13] MEDS ORDERED: SUMATRIPTAN SUCCINATE 100 MG TABLET PO PRN (23:00)
[2023-11-13] MEDS ORDERED: KETOROLAC TROMETHAMINE 10 MG TABLET PO PRN (23:00)
[2023-11-13] MEDS ORDERED: ONDANSETRON 4 MG TAB.RAPDIS PO PRN (23:45)
[2023-11-13] MEDS ORDERED: ALBUTEROL FS 2.5 MG/3 ML VIAL.NEB IH PRN (23:45)
[2023-11-14] MEDS ORDERED: IBUPROFEN 400 MG TABLET PO PRN (02:00)
[2023-11-14] MEDS: LORAZEPAM 0.5 MG TABLET PO PRN ×2 (07:21→17:49)
[2023-11-14] MEDS: LEVOTHYROXINE SODIUM 50 MCG TABLET PO SCH (07:21)
[2023-11-14 08:00] VITALS: BP 137/76; TEMP 98; O2SAT 100
[2023-11-14 08:13] LABS: ALBUMIN 3.5 g/dL (3.4-5.0); BILIRUBIN,TOTAL 0.2 mg/dL (0.2-1.0); CALCIUM, SERUM 9.6 mg/dL (8.5-10.1); CREATININE 0.5 mg/dL (0.6-1.3); POTASSIUM 3.8 mmol/L (3.5-5.1); TOTAL PROTEIN, SERUM 7.4 g/dL (6.4-8.2)
[2023-11-14 08:16] LABS: CHOLESTEROL 198 mg/dL (<200); HDL CHOLESTEROL 95 mg/dL (40-60); LDL 83 mg/dL (0-99); TRIGLYCERIDES 52 mg/dL (30-150)
[2023-11-14] MEDS ORDERED: ESCITALOPRAM OXALATE (10 MG) 10 MG TABLET PO SCH (09:00)
[2023-11-14] MEDS: NICOTINE PATCH (14MG) 14 MG PATCH.TD24 TD SCH (09:12)
[2023-11-14] MEDS: risperiDONE 0.25 MG TABLET PO SCH ×2 (09:12→16:14)
[2023-11-14] MEDS: FLUTICASONE/VILANTEROL 1 EACH BLST.W.DEV IH SCH (09:14)
[2023-11-14] MEDS: AMOXICILLIN TRIHYDRATE 250 MG CAPSULE PO SCH ×4 (09:25→21:15)
[2023-11-14] MEDS: ACETAMINOPHEN 325 MG TABLET PO PRN ×2 (10:21→23:32)
[2023-11-14 16:00] VITALS: BP 127/61; TEMP 97.8; O2SAT 98
[2023-11-14] MEDS ORDERED: DULOXETINE HCL 30 MG CAPSULE.DR PO SCH (17:00)
[2023-11-14] MEDS ORDERED: KEY,NONCONTROL,TO KEEP IN PYXI 1 EA MC ONE ×2 (19:17→20:22)
[2023-11-14] MEDS: CARISOPRODOL 350 MG TABLET PO PRN (20:25)
[2023-11-14 20:52] VITALS: BP 108/54; TEMP 98.1; O2SAT 100
[2023-11-15] MEDS: LORAZEPAM 0.5 MG TABLET PO PRN ×3 (01:49→20:20)
[2023-11-15] MEDS ORDERED: KEY,NONCONTROL,TO KEEP IN PYXI 1 EA MC ONE ×2 (06:06→23:31)
[2023-11-15] MEDS: CARISOPRODOL 350 MG TABLET PO PRN ×2 (06:13→15:29)
[2023-11-15 08:00] VITALS: BP 127/67; TEMP 98.4; O2SAT 94
[2023-11-15] MEDS: LEVOTHYROXINE SODIUM 50 MCG TABLET PO SCH (08:59)
[2023-11-15] MEDS: risperiDONE 0.25 MG TABLET PO SCH ×2 (08:59→16:24)
[2023-11-15] MEDS: AMOXICILLIN TRIHYDRATE 250 MG CAPSULE PO SCH ×4 (08:59→21:00)
[2023-11-15] MEDS: NICOTINE PATCH (14MG) 14 MG PATCH.TD24 TD SCH (08:59)
[2023-11-15] MEDS: FLUTICASONE/VILANTEROL 1 EACH BLST.W.DEV IH SCH (09:03)
[2023-11-15 16:00] VITALS: BP 130/61; TEMP 98; O2SAT 99
[2023-11-15] MEDS: DULOXETINE HCL 30 MG CAPSULE.DR PO SCH (16:24)
[2023-11-15 20:00] VITALS: BP 138/71; TEMP 98.1; O2SAT 98
[2023-11-15] MEDS: TIZANIDINE HCL 4 MG TABLET PO PRN (23:42)
[2023-11-16] MEDS: ACETAMINOPHEN W/ CODEINE#3 1 EA TABLET PO PRN ×3 (00:58→15:29)
[2023-11-16 08:00] VITALS: BP 130/60; TEMP 97.4; O2SAT 94
[2023-11-16] MEDS: LEVOTHYROXINE SODIUM 50 MCG TABLET PO SCH (08:12)
[2023-11-16] MEDS: AMOXICILLIN TRIHYDRATE 250 MG CAPSULE PO SCH ×4 (08:45→20:16)
[2023-11-16] MEDS: FLUTICASONE/VILANTEROL 1 EACH BLST.W.DEV IH SCH (08:45)
[2023-11-16] MEDS: risperiDONE 0.25 MG TABLET PO SCH ×2 (08:46→16:08)
[2023-11-16] MEDS: NICOTINE PATCH (14MG) 14 MG PATCH.TD24 TD SCH (08:47)
[2023-11-16] MEDS: LORAZEPAM 0.5 MG TABLET PO PRN ×2 (11:28→17:23)
[2023-11-16 16:00] VITALS: BP 110/70; TEMP 97.6; O2SAT 98
[2023-11-16] MEDS: DULOXETINE HCL 30 MG CAPSULE.DR PO SCH (16:08)
[2023-11-16] MEDS ORDERED: KEY,NONCONTROL,TO KEEP IN PYXI 1 EA MC ONE (17:24)
[2023-11-16] MEDS: CARISOPRODOL 350 MG PO PRN (18:48)
[2023-11-16 20:03] VITALS: BP 110/54; TEMP 97.8; O2SAT 98
[2023-11-17] MEDS: CARISOPRODOL 350 MG PO PRN ×2 (06:54→15:41)
[2023-11-17] MEDS: LEVOTHYROXINE SODIUM 50 MCG TABLET PO SCH (07:30)
[2023-11-17 08:00] VITALS: BP 129/62; TEMP 98.1; O2SAT 96
[2023-11-17] MEDS: NICOTINE PATCH (14MG) 14 MG PATCH.TD24 TD SCH (09:03)
[2023-11-17] MEDS: risperiDONE 0.25 MG TABLET PO SCH ×2 (09:04→17:21)
[2023-11-17] MEDS: AMOXICILLIN TRIHYDRATE 250 MG CAPSULE PO SCH ×4 (09:09→21:46)
[2023-11-17] MEDS: FLUTICASONE/VILANTEROL 1 EACH BLST.W.DEV IH SCH (09:09)
[2023-11-17] MEDS: ACETAMINOPHEN W/ CODEINE#3 1 EA TABLET PO PRN ×2 (10:45→19:45)
[2023-11-17] MEDS: LORAZEPAM 0.5 MG TABLET PO PRN (13:24)
[2023-11-17 16:00] VITALS: BP 116/60; TEMP 97.9; O2SAT 100
[2023-11-17] MEDS: DULOXETINE HCL 30 MG CAPSULE.DR PO SCH (17:20)
[2023-11-17 21:43] VITALS: BP 112/53; TEMP 97.9; O2SAT 97
[2023-11-17] MEDS: TIZANIDINE HCL 4 MG TABLET PO PRN (21:47)
[2023-11-18] MEDS: LORAZEPAM 0.5 MG TABLET PO PRN ×3 (02:41→21:06)
[2023-11-18 08:00] VITALS: BP 109/53; TEMP 98.1; O2SAT 97
[2023-11-18] MEDS: LEVOTHYROXINE SODIUM 50 MCG TABLET PO SCH (08:16)
[2023-11-18] MEDS: risperiDONE 0.25 MG TABLET PO SCH ×2 (08:16→16:22)
[2023-11-18] MEDS: CARISOPRODOL 350 MG PO PRN ×2 (08:16→16:22)
[2023-11-18] MEDS: AMOXICILLIN TRIHYDRATE 250 MG CAPSULE PO SCH ×4 (08:17→21:05)
[2023-11-18] MEDS: NICOTINE PATCH (14MG) 14 MG PATCH.TD24 TD SCH (08:17)
[2023-11-18] MEDS: FLUTICASONE/VILANTEROL 1 EACH BLST.W.DEV IH SCH (08:23)
[2023-11-18] MEDS: ACETAMINOPHEN W/ CODEINE#3 1 EA TABLET PO PRN ×2 (12:08→19:40)
[2023-11-18 16:00] VITALS: BP 103/78; TEMP 98.6; O2SAT 99
[2023-11-18] MEDS: DULOXETINE HCL 30 MG CAPSULE.DR PO SCH (16:22)
[2023-11-18 20:00] VITALS: BP 110/59; TEMP 97.9; O2SAT 96
[2023-11-19] MEDS: LORAZEPAM 0.5 MG TABLET PO PRN ×2 (05:26→12:20)
[2023-11-19] MEDS: ACETAMINOPHEN W/ CODEINE#3 1 EA TABLET PO PRN ×2 (06:20→14:35)
[2023-11-19 08:00] VITALS: BP 112/90; TEMP 98.7; O2SAT 97
[2023-11-19] MEDS: LEVOTHYROXINE SODIUM 50 MCG TABLET PO SCH (08:26)
[2023-11-19] MEDS: NICOTINE PATCH (14MG) 14 MG PATCH.TD24 TD SCH (08:37)
[2023-11-19] MEDS: AMOXICILLIN TRIHYDRATE 250 MG CAPSULE PO SCH ×4 (08:37→20:17)
[2023-11-19] MEDS: FLUTICASONE/VILANTEROL 1 EACH BLST.W.DEV IH SCH (08:37)
[2023-11-19] MEDS: risperiDONE 0.25 MG TABLET PO SCH ×2 (08:37→16:21)
[2023-11-19] MEDS ORDERED: CARISOPRODOL 350 MG TABLET PO PRN (09:00)
[2023-11-19] MEDS: CARISOPRODOL 350 MG PO PRN ×2 (10:40→20:17)
[2023-11-19 16:00] VITALS: BP 117/61; TEMP 97.9; O2SAT 96
[2023-11-19] MEDS: DULOXETINE HCL 30 MG CAPSULE.DR PO SCH (16:21)
[2023-11-19] MEDS: risperiDONE 1 MG TABLET PO SCH (18:01)
[2023-11-19 20:22] VITALS: BP 116/54; TEMP 98.4; O2SAT 96
[2023-11-20] MEDS: CARISOPRODOL 350 MG PO PRN ×2 (05:19→13:42)
[2023-11-20] MEDS: LORAZEPAM 0.5 MG TABLET PO PRN ×2 (06:30→12:35)
[2023-11-20 08:00] VITALS: BP 128/72; TEMP 98.6; O2SAT 98
[2023-11-20] MEDS: LEVOTHYROXINE SODIUM 50 MCG TABLET PO SCH (08:00)
[2023-11-20] MEDS: ACETAMINOPHEN W/ CODEINE#3 1 EA TABLET PO PRN (08:31)
[2023-11-20] MEDS: FLUTICASONE/VILANTEROL 1 EACH BLST.W.DEV IH SCH (09:15)
[2023-11-20] MEDS: risperiDONE 1 MG TABLET PO SCH (09:15)
[2023-11-20] MEDS: NICOTINE PATCH (14MG) 14 MG PATCH.TD24 TD SCH (09:15)
[2023-11-20] MEDS: AMOXICILLIN TRIHYDRATE 250 MG CAPSULE PO SCH ×2 (09:15→12:34)
[2023-11-20 09:28] LABS: BASOPHILS # (AUTO) 0.1 K/uL (0.0-0.2); BASOPHILS % (AUTO) 1.2 % (0.0-2.0); EOSINOPHILS # (AUTO) 0.1 K/uL (0.0-0.7); EOSINOPHILS % (AUTO) 3.3 % (0.0-6.0); HEMATOCRIT 36 % (33-45); HEMOGLOBIN 11.9 g/dL (11.5-14.8); LYMPHOCYTES # (AUTO) 1.5 K/uL (0.8-4.8); LYMPHOCYTES % (AUTO) 35.7 % (20.0-44.0); MEAN CORPUSCULAR HEMOGLOBIN 32 PG (26.0-33.0); MEAN CORPUSCULAR HGB CONC 33 g/dl (31.0-36.0); MEAN CORPUSCULAR VOLUME 97 fL (82-100); MONOCYTES # (AUTO) 0.5 K/uL (0.1-1.30); MONOCYTES % (AUTO) 11.8 % (2.0-12.0); NEUTROPHILS # (AUTO) 2.1 K/uL (1.8-8.9); PLATELET COUNT (AUTO) 217 K/uL (150-450); RED BLOOD CELL COUNT(AUTO) 3.66 MIL/uL (4.0-5.2); RED CELL DISTRIBUTION WIDTH 12.7 % (11.5-15.0); WHITE BLOOD COUNT (AUTO) 4.3 K/uL (4.3-11.0)
[2023-11-20 09:44] LABS: ALBUMIN 3.6 g/dL (3.4-5.0); BILIRUBIN,TOTAL 0.3 mg/dL (0.2-1.0); CALCIUM, SERUM 9.6 mg/dL (8.5-10.1); CREATININE 0.5 mg/dL (0.6-1.3); POTASSIUM 3.8 mmol/L (3.5-5.1); TOTAL PROTEIN, SERUM 7.4 g/dL (6.4-8.2)
== END 2023-11-20 14:15 | DRG 885 ==
LOC: ER 18:14 → GPS 11-13 03:58
PROVIDERS: ADMIT Nurse Practitioner Psychiatric/Mental Health; ATTEND Internal Medicine
DX: F25.1 Schizoaffective disorder, depressive type (principal); F29 Unspecified psychosis not due to a substance or known physiological condition; J44.9 Chronic obstructive pulmonary disease, unspecified; K21.9 Gastro-esophageal reflux disease without esophagitis; Z20.822 Contact with and (suspected) exposure to COVID-19; F43.10 Post-traumatic stress disorder, unspecified; E03.9 Hypothyroidism, unspecified; G89.4 Chronic pain syndrome; Z89.612 Acquired absence of left leg above knee; Z79.899 Other long term (current) drug therapy; Z73.6 Limitation of activities due to disability; Z96.659 Presence of unspecified artificial knee joint; Z88.8 Allergy status to other drugs, medicaments and biological substances; Z79.51 Long term (current) use of inhaled steroids; F17.200 Nicotine dependence, unspecified, uncomplicated; Z81.8 Family history of other mental and behavioral disorders; F31.9 Bipolar disorder, unspecified
CPT/HCPCS: 36415; 72131-TC; 73700-TC; 80048-TC; 80053-TC; 80061-TC; 80076-TC; 82962-TC; 85025-TC; C9803; G0480

== ENCOUNTER 2024-01-09 12:56 | Inpatient (IN) | payer MEDICARE, OTHER ==
[~2024-01-09] VITALS: Ht 163.8 cm; Wt 71.2 kg
[~2024-01-09 12:56] MED LIST changes: +ACET-907 PO; -ARIP2TAB3 PO; +BUPR-54 PO; +ESCI10TA PO; -ESCI20TA PO; +FLUT1DIS IH; +GUAI120L56 PO; -HYDR50TA61 PO; -IBUP-1490; +IBUP-1957 PO; +KETO10TA2 PO; +LEVO50TA PO; -LEVO75TA7 PO; -MAG30ORA PO; -MAGN400O6 PO; -METH500T6; -OMEP40CA21; +ONDA-97 PO; -OXYC1TAB12 PO; +SUMA100T16 PO; -SUMA50TA PO; +TIZA4TAB5 PO; -[UNRECOGNIZED DRUG - CODE] PO
[2024-01-09 13:41] LABS: BASOPHILS # (AUTO) 0.1 K/uL (0.0-0.2); BASOPHILS % (AUTO) 0.8 % (0.0-2.0); EOSINOPHILS # (AUTO) 0.1 K/uL (0.0-0.7); HEMATOCRIT 43 % (33-45); HEMOGLOBIN 14.8 g/dL (11.5-14.8); LYMPHOCYTES % (AUTO) 30.5 % (20.0-44.0); MEAN CORPUSCULAR HEMOGLOBIN 33 PG (26.0-33.0); MEAN CORPUSCULAR HGB CONC 34 g/dl (31.0-36.0); MEAN CORPUSCULAR VOLUME 97 fL (82-100); MONOCYTES # (AUTO) 0.5 K/uL (0.1-1.30); MONOCYTES % (AUTO) 7.2 % (2.0-12.0); NEUTROPHILS # (AUTO) 3.9 K/uL (1.8-8.9); NEUTROPHILS % (AUTO) 60.5 % (43.0-81.0); PLATELET COUNT (AUTO) 226 K/uL (150-450); RED BLOOD CELL COUNT(AUTO) 4.47 MIL/uL (4.0-5.2); RED CELL DISTRIBUTION WIDTH 13.1 % (11.5-15.0); WHITE BLOOD COUNT (AUTO) 6.5 K/uL (4.3-11.0)
[2024-01-09 14:07] LABS: CARBON DIOXIDE 27 mmol/L (21-32); CHLORIDE 98 mmol/L (98-107); CREATININE 0.8 mg/dL (0.6-1.3); GLUCOSE 135 mg/dL (74-106); POTASSIUM 3.2 mmol/L (3.5-5.1); SODIUM SERUM 135 mmol/L (136-145); UREA NITROGEN, BLOOD 7 mg/dL (7-18)
[2024-01-09 14:13] LABS: ALANINE AMINOTRANSFERASE 12 U/L (12-78); ALBUMIN 4.1 g/dL (3.4-5.0); ALCOHOL, BLOOD < 3 mg/dL (0-10); ALKALINE PHOSPHATASE 106 U/L (46-116); ASPARTATE AMINOTRANSFERASE 10 U/L (15-37); BILIRUBIN,DIRECT 0.1 mg/dL (0.0-0.2); BILIRUBIN,TOTAL 0.4 mg/dL (0.2-1.0); SALICYLATE 4.8 mg/dL (2.8-20.0)
[2024-01-09 14:14] LABS: ACETAMINOPHEN 0 ug/ml (10-30)
[2024-01-09] MEDS ORDERED: IBUP-1953 PO (14:18)
[2024-01-09 15:16] LABS: APPEARANCE,URINE SLIGHTLY CLOUDY (CLEAR); BILIRUBIN,URINE NEGATIVE (NEGATIVE); BLOOD, URINE NEGATIVE Ery/uL (NEGATIVE); COLOR,URINE YELLOW (YELLOW); KETONES,URINE NEGATIVE (NEGATIVE); LEUKOCYTE ESTERASE ,URINE 2+ (NEGATIVE); NITRITE, URINE NEGATIVE (NEGATIVE); PROTEIN,URINE NEGATIVE (NEGATIVE); UGLUCOSE NEGATIVE (NEGATIVE); UROBILINOGEN,URINE 0.2 EU/dL (0.2)
[2024-01-09 15:31] LABS: AMPHETAMINE, URINE NEGATIVE (NEGATIVE); BARBITURATE, URINE NEGATIVE (NEGATIVE); BENZODIAZEPINE, URINE NEGATIVE (NEGATIVE); COCCAINE, URINE NEGATIVE (NEGATIVE); OPIATE, URINE NEGATIVE (NEGATIVE); PHENCYCLIDINE SCREEN,URINE NEGATIVE (NEGATIVE)
[2024-01-09 15:34] LABS: CANNABINOID, URINE POSITIVE (NEGATIVE)
[2024-01-09] MEDS ORDERED: POTASSIUM CHLORIDE 20 MEQ POWDER PACKET ONE (15:58)
[2024-01-09] MEDS ORDERED: POTASSIUM CHLORIDE 20 MEQ TAB.PRT.SR PO ONE (16:03)
[2024-01-09] MEDS: POTASSIUM CHLORIDE 20 MEQ POWDER PACKET GT SCH (16:10)
[2024-01-09 16:34] LABS: ADD URINE CULTURE YES; BACTERIA,URINE 2+ /HPF (None Seen); RBC,URINE 0-2 /HPF (0-2); SQUAMOUS EPITHELIAL CELL,UR 21-50 /HPF (None Seen); WBC,URINE 21-50 /HPF (0-3)
[2024-01-09] MEDS ORDERED: CARISOPRODOL 350 MG TABLET PO PRN (17:00)
[2024-01-09] MEDS: BLOOD SUGAR DIAGNOSTIC 1 EACH STRIP IN ONE (17:06)
[2024-01-09 17:24] VITALS: BP 120/65; TEMP 98.8; O2SAT 94
[2024-01-09] MEDS ORDERED: ALBUTEROL FS 2.5 MG/0.5 ML VIAL.NEB NEB PRN (17:30)
[2024-01-09 20:00] VITALS: BP 105/56; TEMP 98.3; O2SAT 98
[2024-01-09] MEDS: LORAZEPAM 0.5 MG TABLET PO PRN (20:05)
[2024-01-10] MEDS: CARISOPRODOL 350 MG TABLET PO PRN (05:52)
[2024-01-10 08:00] VITALS: BP 99/57; TEMP 98.9; O2SAT 95
[2024-01-10] MEDS: LEVOTHYROXINE SODIUM 50 MCG TABLET PO SCH (08:15)
[2024-01-10 09:31] LABS: ALBUMIN 3.4 g/dL (3.4-5.0); BILIRUBIN,TOTAL 0.6 mg/dL (0.2-1.0); CALCIUM, SERUM 9.1 mg/dL (8.5-10.1); CREATININE 0.7 mg/dL (0.6-1.3); POTASSIUM 4.2 mmol/L (3.5-5.1); TOTAL PROTEIN, SERUM 6.6 g/dL (6.4-8.2)
[2024-01-10] MEDS: risperiDONE 1 MG TABLET PO SCH (10:20)
[2024-01-10] MEDS: ALBUTEROL FS 2.5 MG/0.5 ML VIAL.NEB NEB SCH (11:20)
[2024-01-10] MEDS: BUDESONIDE RESPULE INH 0.5 MG/2 ML AMPUL.NEB IH SCH (11:20)
[2024-01-10 11:21] VITALS: O2SAT 95
[2024-01-10 11:22] VITALS: O2SAT 99
[2024-01-10 16:00] VITALS: BP 104/60; TEMP 98; O2SAT 96
[2024-01-10 17:06] LABS: CREATININE 0.7 mg/dL (0.6-1.3)
[2024-01-10 17:11] LABS: CHOLESTEROL 164 mg/dL (<200); HDL CHOLESTEROL 73 mg/dL (40-60); LDL 74 mg/dL (0-99); TRIGLYCERIDES 73 mg/dL (30-150)
[2024-01-10 20:00] VITALS: BP 105/61; TEMP 98.3; O2SAT 98
[2024-01-11] VITALS (7 sets, daily range): BP systolic 112–116; BP diastolic 58–66; TEMP 97.5–98.2; O2SAT 96–100
[2024-01-11] MEDS: ACETAMINOPHEN 325 MG TABLET PO PRN (08:08)
[2024-01-11] MEDS: ESCITALOPRAM OXALATE (10 MG) 10 MG TABLET PO SCH (10:04)
[2024-01-11] MEDS: IBUPROFEN 400 MG TABLET PO PRN (13:40)
[2024-01-12 08:00] VITALS: BP 125/59; TEMP 97.7; O2SAT 98
[2024-01-12] MEDS: NICOTINE PATCH (21MG) 21 MG PATCH.TD24 TD SCH (08:42)
[2024-01-12 16:00] VITALS: BP 122/64; TEMP 98.1; O2SAT 99
[2024-01-12] MEDS: MAGNESIUM HYDROXIDE 30 ML UDC PO PRN (16:06)
[2024-01-12 20:31] VITALS: BP 118/60; TEMP 98; O2SAT 97
[2024-01-13 08:00] VITALS: BP 108/59; TEMP 97.9; O2SAT 96
[2024-01-13] MEDS: TRAMADOL HCL 50 MG TABLET PO PRN (09:48)
[2024-01-13] MEDS: OXCARBAZEPINE 150 MG TABLET PO SCH (12:26)
[2024-01-13 16:00] VITALS: BP 131/63; TEMP 97.9; O2SAT 98
[2024-01-13 20:28] VITALS: O2SAT 96
[2024-01-13 20:43] VITALS: O2SAT 99
[2024-01-13 21:36] VITALS: BP 113/64; TEMP 98.1; O2SAT 95
[2024-01-14] VITALS (9 sets, daily range): BP systolic 117–140; BP diastolic 62–73; TEMP 97.9–98.6; O2SAT 93–99
[2024-01-14] MEDS: ESCITALOPRAM OXALATE (10 MG) 10 MG TABLET PO SCH (08:09)
[2024-01-15] VITALS (9 sets, daily range): BP systolic 109–138; BP diastolic 53–76; TEMP 97.7–98.3; O2SAT 93–99
[2024-01-16] VITALS (7 sets, daily range): BP systolic 117–119; BP diastolic 57–67; TEMP 98–98.1; O2SAT 95–99
[2024-01-17 07:40] VITALS: O2SAT 96
[2024-01-17 07:57] VITALS: O2SAT 98
[2024-01-17 08:00] VITALS: BP 128/60; TEMP 97.9; O2SAT 96
[2024-01-17] MEDS: ONDANSETRON 4 MG TAB.RAPDIS PO PRN (09:29)
[2024-01-17 16:00] VITALS: BP 145/61; TEMP 97.5; O2SAT 98
[2024-01-17] MEDS: OXCARBAZEPINE 150 MG TABLET PO SCH (18:01)
[2024-01-17] MEDS: MAG HYDROX/AL HYDROX/SIMETH 30 ML UDC PO PRN (19:17)
[2024-01-17 20:55] VITALS: BP 131/54; TEMP 97.9; O2SAT 97
[2024-01-18 08:00] VITALS: BP 127/71; TEMP 98.7; O2SAT 94
[2024-01-18 16:00] VITALS: BP 142/75; TEMP 97.9; O2SAT 96
[2024-01-18 20:32] VITALS: O2SAT 94
[2024-01-18 20:42] VITALS: O2SAT 98
[2024-01-18 21:18] VITALS: BP 138/72; TEMP 98.1; O2SAT 97
[2024-01-19 08:00] VITALS: BP 139/68; TEMP 98.1; O2SAT 98
[2024-01-19 08:10] VITALS: O2SAT 95
[2024-01-19 08:31] VITALS: O2SAT 98
[2024-01-19 16:00] VITALS: BP 124/62; TEMP 97.7; O2SAT 98
[2024-01-19] MEDS: TIZANIDINE HCL 4 MG TABLET PO PRN (20:03)
[2024-01-19 21:10] VITALS: BP 106/67; TEMP 98.1; O2SAT 98
[2024-01-20 08:00] VITALS: BP 146/84; TEMP 97.8; O2SAT 98
[2024-01-20 08:21] VITALS: O2SAT 97
== END 2024-01-20 15:03 | DRG 885 ==
LOC: ER 13:03 → GPS 14:47
PROVIDERS: ADMIT Psychiatry & Neurology Psychiatry; ATTEND Internal Medicine
DX: F31.9 Bipolar disorder, unspecified (principal); J44.89 Other specified chronic obstructive pulmonary disease; Z59.00 Homelessness unspecified; R45.851 Suicidal ideations; F33.3 Major depressive disorder, recurrent, severe with psychotic symptoms; E03.9 Hypothyroidism, unspecified; I10 Essential (primary) hypertension; G89.4 Chronic pain syndrome; Z89.512 Acquired absence of left leg below knee; F12.10 Cannabis abuse, uncomplicated; Z87.891 Personal history of nicotine dependence; Z20.822 Contact with and (suspected) exposure to COVID-19
CPT/HCPCS: 36415; 80048-TC; 80053-TC; 80061-TC; 80076-TC; 81001; 82565-TC; 82962-TC; 85025-TC; 87081-TC; 87086-TC; 94799-TC; G0480; Q0162

== ENCOUNTER 2024-03-26 15:00 | Inpatient (IN) | payer MEDICARE, OTHER ==
[~2024-03-26] VITALS: Ht 167.6 cm; Wt 77.6 kg
[~2024-03-26 15:00] MED LIST changes: -ACET-907 PO; -AMOX500C2 PO; -GUAI120L56 PO; +IBUP-1953 PO; -IBUP-1957 PO; -KETO10TA2 PO
[2024-03-26 17:01] VITALS: O2SAT 99
[2024-03-26 18:02] LABS: APPEARANCE,URINE Clear (CLEAR); BILIRUBIN,URINE Negative (NEGATIVE); BLOOD, URINE Negative Ery/uL (NEGATIVE); COLOR,URINE YELLOW (YELLOW); KETONES,URINE Negative (NEGATIVE); LEUKOCYTE ESTERASE ,URINE Trace (NEGATIVE); NITRITE, URINE Negative (NEGATIVE); PROTEIN,URINE Negative (NEGATIVE); UGLUCOSE Negative (NEGATIVE); UROBILINOGEN,URINE 0.2 EU/dL (0.2)
[2024-03-26 18:21] LABS: ADD URINE CULTURE NO; BACTERIA,URINE Few /HPF (None Seen); RBC,URINE 0-2 /HPF (0-2); SQUAMOUS EPITHELIAL CELL,UR Few /HPF (None Seen)
[2024-03-26 18:23] LABS: AMPHETAMINE, URINE NEGATIVE (NEGATIVE); BARBITURATE, URINE NEGATIVE (NEGATIVE); BENZODIAZEPINE, URINE NEGATIVE (NEGATIVE); CANNABINOID, URINE NEGATIVE (NEGATIVE); COCCAINE, URINE NEGATIVE (NEGATIVE); OPIATE, URINE NEGATIVE (NEGATIVE); PHENCYCLIDINE SCREEN,URINE NEGATIVE (NEGATIVE)
[2024-03-26 18:29] LABS: BASOPHILS # (AUTO) 0.1 K/uL (0.0-0.2); BASOPHILS % (AUTO) 1.2 % (0.0-2.0); EOSINOPHILS # (AUTO) 0.2 K/uL (0.0-0.7); EOSINOPHILS % (AUTO) 2.8 % (0.0-6.0); HEMATOCRIT 36 % (33-45); LYMPHOCYTES # (AUTO) 2.1 K/uL (0.8-4.8); MEAN CORPUSCULAR HEMOGLOBIN 32 PG (26.0-33.0); MEAN CORPUSCULAR HGB CONC 34 g/dl (31.0-36.0); MEAN CORPUSCULAR VOLUME 95 fL (82-100); MONOCYTES # (AUTO) 0.6 K/uL (0.1-1.30); MONOCYTES % (AUTO) 10.2 % (2.0-12.0); NEUTROPHILS # (AUTO) 2.7 K/uL (1.8-8.9); NEUTROPHILS % (AUTO) 48.8 % (43.0-81.0); PLATELET COUNT (AUTO) 267 K/uL (150-450); RED BLOOD CELL COUNT(AUTO) 3.73 MIL/uL (4.0-5.2); RED CELL DISTRIBUTION WIDTH 13.3 % (11.5-15.0); WHITE BLOOD COUNT (AUTO) 5.6 K/uL (4.3-11.0)
[2024-03-26 18:33] LABS: CALCIUM, SERUM 9.1 mg/dL (8.5-10.1); CARBON DIOXIDE 25 mmol/L (21-32); CHLORIDE 102 mmol/L (98-107); CREATININE 0.6 mg/dL (0.6-1.3); GLUCOSE 142 mg/dL (74-106); SODIUM SERUM 135 mmol/L (136-145); UREA NITROGEN, BLOOD 10 mg/dL (7-18)
[2024-03-26 18:39] LABS: ALANINE AMINOTRANSFERASE 17 U/L (12-78); ALBUMIN 3.5 g/dL (3.4-5.0); ALCOHOL, BLOOD < 3 mg/dL (0-10); ALKALINE PHOSPHATASE 100 U/L (46-116); ASPARTATE AMINOTRANSFERASE 13 U/L (15-37); BILIRUBIN,DIRECT 0.1 mg/dL (0.0-0.2); BILIRUBIN,TOTAL 0.2 mg/dL (0.2-1.0); SALICYLATE 3.2 mg/dL (2.8-20.0)
[2024-03-26 18:42] LABS: ACETAMINOPHEN <10 ug/ml (10-30)
[2024-03-27] MEDS ORDERED: MAG HYDROX/AL HYDROX/SIMETH 30 ML UDC PO PRN (04:00)
[2024-03-27] MEDS: BLOOD SUGAR DIAGNOSTIC 1 EACH STRIP IN ONE (04:13)
[2024-03-27] MEDS ORDERED: ALBUTEROL SULFATE 8 GM HFA.AER.AD IH SCH (05:00)
[2024-03-27] MEDS ORDERED: ALBUTEROL FS 2.5 MG/3 ML VIAL.NEB NEB PRN (05:30)
[2024-03-27] MEDS: LORAZEPAM 0.5 MG TABLET PO PRN (06:39)
[2024-03-27 08:00] VITALS: BP 148/63; TEMP 97.7; O2SAT 97
[2024-03-27] MEDS ORDERED: FLUTICASONE/SALMETEROL 1 DISK IH SCH (09:00)
[2024-03-27] MEDS: LEVOTHYROXINE SODIUM 50 MCG TABLET PO SCH (09:03)
[2024-03-27] MEDS: FLUTICASONE/VILANTEROL 1 EACH BLST.W.DEV IH SCH (09:04)
[2024-03-27] MEDS: TIZANIDINE HCL 4 MG TABLET PO PRN (10:18)
[2024-03-27] MEDS: ESCITALOPRAM OXALATE (10 MG) 10 MG TABLET PO SCH (10:18)
[2024-03-27] MEDS: ACETAMINOPHEN 325 MG TABLET PO PRN (11:42)
[2024-03-27] MEDS: HYDROCODONE/APAP 10/325MG TABLET PO PRN (14:18)
[2024-03-27 16:00] VITALS: BP 154/53; TEMP 98.1; O2SAT 95
[2024-03-27] MEDS: POTASSIUM CHLORIDE 20 MEQ TAB.PRT.SR PO ONE (22:48)
[2024-03-27] MEDS: CEPHALEXIN MONOHYDRATE 250 MG CAPSULE PO SCH (22:49)
[2024-03-28] MEDS: IBUPROFEN 400 MG TABLET PO PRN (03:26)
[2024-03-28 07:28] LABS: BASOPHILS # (AUTO) 0.1 K/uL (0.0-0.2); BASOPHILS % (AUTO) 1.5 % (0.0-2.0); EOSINOPHILS # (AUTO) 0.1 K/uL (0.0-0.7); EOSINOPHILS % (AUTO) 3.4 % (0.0-6.0); HEMATOCRIT 35 % (33-45); HEMOGLOBIN 11.9 g/dL (11.5-14.8); LYMPHOCYTES # (AUTO) 1.5 K/uL (0.8-4.8); LYMPHOCYTES % (AUTO) 40.6 % (20.0-44.0); MEAN CORPUSCULAR HEMOGLOBIN 32 PG (26.0-33.0); MEAN CORPUSCULAR HGB CONC 34 g/dl (31.0-36.0); MEAN CORPUSCULAR VOLUME 96 fL (82-100); MONOCYTES # (AUTO) 0.4 K/uL (0.1-1.30); MONOCYTES % (AUTO) 10.3 % (2.0-12.0); NEUTROPHILS # (AUTO) 1.6 K/uL (1.8-8.9); NEUTROPHILS % (AUTO) 44.2 % (43.0-81.0); PLATELET COUNT (AUTO) 248 K/uL (150-450); RED BLOOD CELL COUNT(AUTO) 3.71 MIL/uL (4.0-5.2); RED CELL DISTRIBUTION WIDTH 12.9 % (11.5-15.0); WHITE BLOOD COUNT (AUTO) 3.6 K/uL (4.3-11.0)
[2024-03-28 07:37] LABS: CALCIUM, SERUM 9.1 mg/dL (8.5-10.1); CREATININE 0.5 mg/dL (0.6-1.3); POTASSIUM 4.3 mmol/L (3.5-5.1)
[2024-03-28 08:00] VITALS: BP 147/55; TEMP 97.8; O2SAT 97
[2024-03-28] MEDS: BUPROPION XL 150 MG TAB.ER.24 PO SCH (09:30)
[2024-03-28] MEDS: risperiDONE 1 MG TABLET PO SCH (09:32)
[2024-03-28 16:00] VITALS: BP 142/63; TEMP 97.7; O2SAT 98
[2024-03-28 20:50] VITALS: BP 131/57; TEMP 98.2; O2SAT 98
[2024-03-29 08:00] VITALS: BP 124/72; TEMP 98.4; O2SAT 95
[2024-03-29] MEDS: OXCARBAZEPINE 150 MG TABLET PO SCH (13:00)
[2024-03-29] MEDS ORDERED: OXCARBAZEPINE 150 MG TABLET PO SCH (13:00)
[2024-03-29] MEDS: MAGNESIUM HYDROXIDE 30 ML UDC PO PRN (14:59)
[2024-03-29 16:00] VITALS: BP 150/62; TEMP 98.7; O2SAT 98
[2024-03-29] MEDS: risperiDONE 0.25 MG TABLET PO SCH (16:09)
[2024-03-29 20:24] VITALS: BP 119/53; TEMP 97.9; O2SAT 96
[2024-03-29] MEDS: NICOTINE PATCH (14MG) 14 MG PATCH.TD24 TD SCH (20:57)
[2024-03-30 08:00] VITALS: BP 131/57; TEMP 97.9; O2SAT 99
[2024-03-30] MEDS: ESCITALOPRAM OXALATE (10 MG) 10 MG TABLET PO SCH (08:15)
[2024-03-30] MEDS: OXCARBAZEPINE 150 MG TABLET PO SCH (14:04)
[2024-03-30 16:00] VITALS: BP 141/58; TEMP 97.7; O2SAT 98
[2024-03-30 21:13] VITALS: BP 140/57; TEMP 98.1; O2SAT 98
[2024-03-31 08:00] VITALS: BP 140/82; TEMP 97.9; O2SAT 96
[2024-03-31 16:00] VITALS: BP 144/58; TEMP 98.1; O2SAT 98
[2024-03-31 20:48] VITALS: BP 144/58; TEMP 98; O2SAT 100
[2024-04-01 08:00] VITALS: BP 123/81; TEMP 98.1; O2SAT 97
[2024-04-01 11:45] LABS: BASOPHILS % (AUTO) 0.8 % (0.0-2.0); EOSINOPHILS # (AUTO) 0.1 K/uL (0.0-0.7); EOSINOPHILS % (AUTO) 1.6 % (0.0-6.0); HEMATOCRIT 35 % (33-45); HEMOGLOBIN 11.7 g/dL (11.5-14.8); MEAN CORPUSCULAR HEMOGLOBIN 32 PG (26.0-33.0); MEAN CORPUSCULAR HGB CONC 34 g/dl (31.0-36.0); MEAN CORPUSCULAR VOLUME 95 fL (82-100); MONOCYTES # (AUTO) 0.3 K/uL (0.1-1.30); MONOCYTES % (AUTO) 8.2 % (2.0-12.0); NEUTROPHILS # (AUTO) 2.5 K/uL (1.8-8.9); NEUTROPHILS % (AUTO) 63.4 % (43.0-81.0); PLATELET COUNT (AUTO) 205 K/uL (150-450); RED BLOOD CELL COUNT(AUTO) 3.63 MIL/uL (4.0-5.2); RED CELL DISTRIBUTION WIDTH 13.1 % (11.5-15.0)
[2024-04-01 16:28] VITALS: BP 143/68; TEMP 97.9; O2SAT 99
[2024-04-01 16:45] LABS: THYROID STIMULATING HORMONE 0.654 uIU/mL (0.358-3.74)
[2024-04-01 16:50] LABS: C-REACTIVE PROTEIN < 0.05 mg/dL (0.0-0.30)
[2024-04-01 17:00] LABS: RHEUMATOID FACTOR SCREEN NEGATIVE (NEGATIVE)
[2024-04-01 20:00] VITALS: BP 115/67; TEMP 98; O2SAT 96
[2024-04-02 07:32] LABS: BASOPHILS % (AUTO) 0.9 % (0.0-2.0); EOSINOPHILS # (AUTO) 0.1 K/uL (0.0-0.7); EOSINOPHILS % (AUTO) 2.4 % (0.0-6.0); HEMATOCRIT 32 % (33-45); HEMOGLOBIN 11.2 g/dL (11.5-14.8); LYMPHOCYTES # (AUTO) 1.6 K/uL (0.8-4.8); LYMPHOCYTES % (AUTO) 39.9 % (20.0-44.0); MEAN CORPUSCULAR HEMOGLOBIN 33 PG (26.0-33.0); MEAN CORPUSCULAR HGB CONC 35 g/dl (31.0-36.0); MEAN CORPUSCULAR VOLUME 94 fL (82-100); MONOCYTES # (AUTO) 0.5 K/uL (0.1-1.30); MONOCYTES % (AUTO) 12.6 % (2.0-12.0); NEUTROPHILS # (AUTO) 1.8 K/uL (1.8-8.9); NEUTROPHILS % (AUTO) 44.2 % (43.0-81.0); PLATELET COUNT (AUTO) 192 K/uL (150-450); RED BLOOD CELL COUNT(AUTO) 3.44 MIL/uL (4.0-5.2); RED CELL DISTRIBUTION WIDTH 13.2 % (11.5-15.0)
[2024-04-02 08:09] LABS: FOLIC ACID 8.9 ng/mL (>3.0); HEPATITIS B SURFACE AB Non Reactive (.); IMMUNOGLOBULIN A, SERUM 284 mg/dL (87-352); IMMUNOGLOBULIN G, SERUM 788 mg/dL (586-1602); IMMUNOGLOBULIN M, SERUM 36 mg/dL (26-217)
[2024-04-02 08:15] VITALS: BP 146/76; TEMP 97.3; O2SAT 98
[2024-04-02 11:09] LABS: *SPE A/G RATIO 1.3 (0.7-1.7); *SPE ALBUMIN 3.4 g/dL (2.9-4.4); *SPE ALPHA-1-GLOBULIN 0.2 g/dL (0.0-0.4); *SPE ALPHA-2-GLOBULIN 0.7 g/dL (0.4-1.0); *SPE BETA GLOBULIN 0.9 g/dL (0.7-1.3); *SPE GLOBULIN, TOTAL 2.7 g/dL (2.2-3.9); *SPE M-SPIKE Not Observed g/dL (Not Observed); *SPE PROTEIN TOTAL 6.1 g/dL (6.0-8.5); *SPEGAMMA GLOBULIN 0.8 g/dL (0.4-1.8)
[2024-04-02 14:07] LABS: FREE KAPPA LT CHAINS SERUM 21.3 mg/L (3.3-19.4); FREE LAMBDA LT CHAIN SERUM 13.6 mg/L (5.7-26.3); KAPPA/LAMBDA RATIO SERUM 1.57 (0.26-1.65)
[2024-04-02 16:11] VITALS: BP 147/61; TEMP 97.6; O2SAT 98
[2024-04-02 20:00] VITALS: BP 139/67; TEMP 98.4; O2SAT 96
[2024-04-03 07:46] LABS: BASOPHILS % (AUTO) 0.7 % (0.0-2.0); EOSINOPHILS # (AUTO) 0.1 K/uL (0.0-0.7); EOSINOPHILS % (AUTO) 2.3 % (0.0-6.0); HEMATOCRIT 34 % (33-45); HEMOGLOBIN 11.7 g/dL (11.5-14.8); LYMPHOCYTES # (AUTO) 1.6 K/uL (0.8-4.8); LYMPHOCYTES % (AUTO) 35.1 % (20.0-44.0); MEAN CORPUSCULAR HEMOGLOBIN 32 PG (26.0-33.0); MEAN CORPUSCULAR HGB CONC 35 g/dl (31.0-36.0); MEAN CORPUSCULAR VOLUME 93 fL (82-100); MONOCYTES # (AUTO) 0.5 K/uL (0.1-1.30); MONOCYTES % (AUTO) 11.8 % (2.0-12.0); NEUTROPHILS # (AUTO) 2.3 K/uL (1.8-8.9); NEUTROPHILS % (AUTO) 50.1 % (43.0-81.0); PLATELET COUNT (AUTO) 185 K/uL (150-450); RED BLOOD CELL COUNT(AUTO) 3.62 MIL/uL (4.0-5.2); WHITE BLOOD COUNT (AUTO) 4.6 K/uL (4.3-11.0)
[2024-04-03 08:00] VITALS: BP 123/68; TEMP 97.9; O2SAT 100
[2024-04-03 08:25] LABS: ALBUMIN 3.1 g/dL (3.4-5.0); BILIRUBIN,TOTAL 0.3 mg/dL (0.2-1.0); CALCIUM, SERUM 8.5 mg/dL (8.5-10.1); CREATININE 0.5 mg/dL (0.6-1.3); TOTAL PROTEIN, SERUM 6.5 g/dL (6.4-8.2)
[2024-04-03] MEDS: CYANOCOBALAMIN 500 MCG TABLET PO SCH (09:11)
[2024-04-03] MEDS: risperiDONE 0.25 MG TABLET PO SCH (09:12)
[2024-04-03 16:00] VITALS: BP 129/69; TEMP 97.6; O2SAT 96
[2024-04-03 17:33] LABS: APPEARANCE,URINE CLEAR (CLEAR); BILIRUBIN,URINE NEGATIVE (NEGATIVE); BLOOD, URINE NEGATIVE Ery/uL (NEGATIVE); COLOR,URINE YELLOW (YELLOW); KETONES,URINE NEGATIVE (NEGATIVE); LEUKOCYTE ESTERASE ,URINE NEGATIVE (NEGATIVE); NITRITE, URINE NEGATIVE (NEGATIVE); PH,URINE 7.5 (5.0-8.0); PROTEIN,URINE NEGATIVE (NEGATIVE); UGLUCOSE NEGATIVE (NEGATIVE); UROBILINOGEN,URINE 0.2 EU/dL (0.2)
[2024-04-03 20:00] VITALS: BP 133/69; TEMP 98; O2SAT 98
[2024-04-04 08:00] VITALS: BP 139/69; TEMP 97.6; O2SAT 98
[2024-04-04] MEDS: OXCARBAZEPINE 150 MG TABLET PO SCH (08:06)
[2024-04-04 16:00] VITALS: BP 123/66; TEMP 98.4; O2SAT 97
[2024-04-04 20:00] VITALS: BP 126/58; TEMP 98.5; O2SAT 99
[2024-04-05 08:00] VITALS: BP 123/58; TEMP 97.9; O2SAT 98
[2024-04-05 08:07] LABS: CALCIUM, SERUM 8.7 mg/dL (8.5-10.1); CREATININE 0.6 mg/dL (0.6-1.3); POTASSIUM 3.9 mmol/L (3.5-5.1)
[2024-04-05 08:25] LABS: BASOPHILS % (AUTO) 0.6 % (0.0-2.0); EOSINOPHILS # (AUTO) 0.1 K/uL (0.0-0.7); EOSINOPHILS % (AUTO) 2.3 % (0.0-6.0); HEMATOCRIT 35 % (33-45); HEMOGLOBIN 11.9 g/dL (11.5-14.8); LYMPHOCYTES # (AUTO) 1.3 K/uL (0.8-4.8); LYMPHOCYTES % (AUTO) 37.2 % (20.0-44.0); MEAN CORPUSCULAR HEMOGLOBIN 33 PG (26.0-33.0); MEAN CORPUSCULAR HGB CONC 35 g/dl (31.0-36.0); MEAN CORPUSCULAR VOLUME 94 fL (82-100); MONOCYTES # (AUTO) 0.5 K/uL (0.1-1.30); MONOCYTES % (AUTO) 14.5 % (2.0-12.0); NEUTROPHILS # (AUTO) 1.6 K/uL (1.8-8.9); NEUTROPHILS % (AUTO) 45.4 % (43.0-81.0); PLATELET COUNT (AUTO) 194 K/uL (150-450); RED BLOOD CELL COUNT(AUTO) 3.68 MIL/uL (4.0-5.2); RED CELL DISTRIBUTION WIDTH 13.3 % (11.5-15.0); WHITE BLOOD COUNT (AUTO) 3.4 K/uL (4.3-11.0)
[2024-04-05 16:00] VITALS: BP 133/60; TEMP 97.7; O2SAT 98
[2024-04-05] MEDS: OXCARBAZEPINE 150 MG TABLET PO SCH (16:58)
[2024-04-05 20:48] VITALS: BP 108/60; TEMP 97.7; O2SAT 95
[2024-04-06 08:00] VITALS: BP 108/57; TEMP 97.7; O2SAT 96
[2024-04-06 08:12] LABS: CALCIUM, SERUM 8.7 mg/dL (8.5-10.1); CREATININE 0.5 mg/dL (0.6-1.3); MAGNESIUM 2.1 mg/dL (1.8-2.4); PHOSPHORUS 4.1 mg/dL (2.5-4.9)
[2024-04-06 08:48] LABS: THYROID STIMULATING HORMONE 2.195 uIU/mL (0.358-3.74)
[2024-04-06 16:00] VITALS: BP 105/57; TEMP 98; O2SAT 97
[2024-04-06] MEDS: OXCARBAZEPINE 150 MG TABLET PO SCH (16:15)
[2024-04-06] MEDS: SUMATRIPTAN SUCCINATE 100 MG TABLET PO PRN (19:57)
[2024-04-06 20:00] VITALS: BP 98/54; TEMP 98.1; O2SAT 97
[2024-04-07 07:24] LABS: BASOPHILS % (AUTO) 1.1 % (0.0-2.0); EOSINOPHILS # (AUTO) 0.1 K/uL (0.0-0.7); EOSINOPHILS % (AUTO) 1.8 % (0.0-6.0); HEMATOCRIT 36 % (33-45); HEMOGLOBIN 12.3 g/dL (11.5-14.8); LYMPHOCYTES # (AUTO) 1.7 K/uL (0.8-4.8); LYMPHOCYTES % (AUTO) 43.3 % (20.0-44.0); MEAN CORPUSCULAR HEMOGLOBIN 32 PG (26.0-33.0); MEAN CORPUSCULAR HGB CONC 35 g/dl (31.0-36.0); MEAN CORPUSCULAR VOLUME 93 fL (82-100); MONOCYTES # (AUTO) 0.6 K/uL (0.1-1.30); MONOCYTES % (AUTO) 16.2 % (2.0-12.0); NEUTROPHILS # (AUTO) 1.5 K/uL (1.8-8.9); NEUTROPHILS % (AUTO) 37.6 % (43.0-81.0); PLATELET COUNT (AUTO) 228 K/uL (150-450); RED BLOOD CELL COUNT(AUTO) 3.81 MIL/uL (4.0-5.2); RED CELL DISTRIBUTION WIDTH 13.3 % (11.5-15.0)
[2024-04-07 08:00] VITALS: BP 102/54; TEMP 98.7; O2SAT 98
[2024-04-07 09:22] LABS: CALCIUM, SERUM 9.2 mg/dL (8.5-10.1); CREATININE 0.6 mg/dL (0.6-1.3); POTASSIUM 4.2 mmol/L (3.5-5.1)
[2024-04-07 16:00] VITALS: BP 106/55; TEMP 98.4; O2SAT 98
[2024-04-07 20:32] VITALS: BP 107/51; TEMP 98.2; O2SAT 97
[2024-04-08 08:00] VITALS: BP 110/65; TEMP 98.1; O2SAT 95
[2024-04-08 16:00] VITALS: BP 134/61; TEMP 98.9; O2SAT 98
[2024-04-08 20:00] VITALS: BP 115/62; TEMP 98.5; O2SAT 97
[2024-04-09 07:21] LABS: EOSINOPHILS # (AUTO) 0.1 K/uL (0.0-0.7); EOSINOPHILS % (AUTO) 3.5 % (0.0-6.0); HEMATOCRIT 34 % (33-45); HEMOGLOBIN 11.9 g/dL (11.5-14.8); LYMPHOCYTES # (AUTO) 1.6 K/uL (0.8-4.8); LYMPHOCYTES % (AUTO) 41.4 % (20.0-44.0); MEAN CORPUSCULAR HEMOGLOBIN 33 PG (26.0-33.0); MEAN CORPUSCULAR HGB CONC 35 g/dl (31.0-36.0); MEAN CORPUSCULAR VOLUME 93 fL (82-100); MONOCYTES # (AUTO) 0.5 K/uL (0.1-1.30); MONOCYTES % (AUTO) 12.5 % (2.0-12.0); NEUTROPHILS # (AUTO) 1.6 K/uL (1.8-8.9); NEUTROPHILS % (AUTO) 41.6 % (43.0-81.0); PLATELET COUNT (AUTO) 215 K/uL (150-450); RED BLOOD CELL COUNT(AUTO) 3.64 MIL/uL (4.0-5.2); RED CELL DISTRIBUTION WIDTH 13.5 % (11.5-15.0); WHITE BLOOD COUNT (AUTO) 3.8 K/uL (4.3-11.0)
[2024-04-09 08:00] VITALS: BP 107/60; TEMP 98; O2SAT 98
[2024-04-13 08:11] LABS: *ANA ANTI-CENTROMERE B AB <0.2 AI (0.0-0.9); *ANA ANTI-DNA(DS) AB, QN <1 IU/mL (0-9); *ANA ANTI-JO-1 <0.2 AI (0.0-0.9); *ANA ANTICHROMATIN ANTIBODY <0.2 AI (0.0-0.9); *ANA RNP ANTIBODIES <0.2 AI (0.0-0.9); *ANA SJOGREN'S ANTI-SS-A <0.2 AI (0.0-0.9); *ANA SJOGREN'S ANTI-SS-B <0.2 AI (0.0-0.9); *ANAANTI-SCLERODERMA-70 AB <0.2 AI (0.0-0.9); *ANASMITH AB <0.2 AI (0.0-0.9)
== END 2024-04-09 13:50 | DRG 885 ==
LOC: ER 15:07 → GPS 03-27 02:27
PROVIDERS: ADMIT Psychiatry & Neurology Psychosomatic Medicine
DX: F31.9 Bipolar disorder, unspecified (principal); J44.89 Other specified chronic obstructive pulmonary disease; E22.2 Syndrome of inappropriate secretion of antidiuretic hormone; R45.851 Suicidal ideations; Z59.00 Homelessness unspecified; F33.3 Major depressive disorder, recurrent, severe with psychotic symptoms; F39 Unspecified mood [affective] disorder; F29 Unspecified psychosis not due to a substance or known physiological condition; D64.9 Anemia, unspecified; D72.819 Decreased white blood cell count, unspecified; E03.9 Hypothyroidism, unspecified; E11.9 Type 2 diabetes mellitus without complications; G89.4 Chronic pain syndrome; I10 Essential (primary) hypertension; Z89.512 Acquired absence of left leg below knee; Z20.822 Contact with and (suspected) exposure to COVID-19; Z73.6 Limitation of activities due to disability; F19.90 Other psychoactive substance use, unspecified, uncomplicated; T42.1X5A Adverse effect of iminostilbenes, initial encounter; Y92.89 Other specified places as the place of occurrence of the external cause; Z87.891 Personal history of nicotine dependence
CPT/HCPCS: 36415; 76700-TC; 80048-TC; 80053-TC; 80061-TC; 80076-TC; 81001; 82607-TC; 82728-TC; 82784; 82962-TC; 83540-TC; 83735-TC; 84100-TC; 84155; 84165; 84443-TC; 84550-TC; 85025-TC; 86140-TC; 86225; 86235; 86334; 86431-TC; 86706; 86803; 87081-TC; 87340; 97112-TC; 97530-TC; G0480

== ENCOUNTER 2024-07-12 14:39 | Emergency (ER) | payer MEDICARE, OTHER ==
[~2024-07-12] VITALS: Ht 170.2 cm; Wt 77.1 kg
[~2024-07-12 14:39] MED LIST changes: -BUPR-54 PO; -ESCI10TA PO
[2024-07-12 14:51] VITALS: BP 134/76; TEMP 98.4; O2SAT 97
[2024-07-12] MEDS ORDERED: HYDROCODONE/APAP 5/325MG TABLET ONE (15:04)
[2024-07-12] MEDS ORDERED: HYDROCODONE/APAP 10/325MG TABLET ONE (15:08)
[2024-07-12] MEDS: HYDROCODONE/APAP 10/325MG TABLET PO ONE (15:15)
== END 2024-07-12 18:48 ==
LOC: ER 14:50
DX: M25.552 Pain in left hip (principal); M25.551 Pain in right hip; M25.521 Pain in right elbow; M25.561 Pain in right knee; I10 Essential (primary) hypertension; E11.9 Type 2 diabetes mellitus without complications; E03.9 Hypothyroidism, unspecified; F17.200 Nicotine dependence, unspecified, uncomplicated; Z79.1 Long term (current) use of non-steroidal anti-inflammatories (NSAID); Z79.899 Other long term (current) drug therapy; Z88.1 Allergy status to other antibiotic agents; Z88.5 Allergy status to narcotic agent; Z88.8 Allergy status to other drugs, medicaments and biological substances; W17.89XA Other fall from one level to another, initial encounter; Y93.89 Activity, other specified; Y92.89 Other specified places as the place of occurrence of the external cause; Y99.8 Other external cause status
CPT/HCPCS: 73080-TC; 73502; 73564-TC